=== PATIENT | female | born 1950 | race Caucasian/White ===

== ENCOUNTER 2018-08-18 17:24 | Outpatient (REF) | payer MEDICARE, OTHER, SELFPAY ==
--- NOTE | 2018-08-18 13:20 | PAPFT_PTH ---
PATIENT: Benita Hudson LOC: [facility] U#:[id number] AGE/SX: 67/F ROOM: RE08/18/[address]: MELANIE Green : 1950 BED: DIS: 08/18/2018 SPEC #: [id number] RECD: 08/18/18 17:28 STATUS: YOLA REQ #: [id number] KIMBERLY: 08/18/18 13:[address]: Vanessa Nails DEPT: [facility] Cytology RECD BY: Vannessa Anderson ENTERED: 08/18/18 17:28 SP TYPE: PAPFT OTHR DR: Dillon Mccallum MD Tissues: 1 - CX/ENDOCX FOR PAP SMEARS Procedures: PAP THIN PREP/[facility] Screening Comments: [id number]
== END 2018-08-18 17:44 ==
LOC: LBN 17:24
PROVIDERS: PCP Family Medicine; Visit Provider Nurse Practitioner Family
DX: Z12.4 Encounter for screening for malignant neoplasm of cervix (principal)
CPT/HCPCS: 88142

== ENCOUNTER 2018-08-23 00:16 | Outpatient (CLI) | payer MEDICARE, OTHER, SELFPAY ==
--- NOTE | 2018-08-23 15:47 | DI.MAMMO_ITS ---
SYMPTOMS/DIAGNOSIS: SCREENING, Z12.31 MAMMOGRAMS: Mammograms were interpreted according to the usual protocol including computer analysis with CAD system, tomosynthesis and C view imaging. Comparison is made with previous examinations. Today's study reveals an asymmetric nodular region in the superior portion of the left breast which is not appreciably changed when compared with previous examinations. There is no evidence of a right breast mass. There are no suspicious calcifications in either breast. SUMMARY: No significant interval change. No evidence of malignancy. Category 2, yearly screening mammography is recommended. Breast density, category B. MQSA ASSESSMENT OF FINDINGS: Negative with benign findings. Category 2. Patient will receive a letter notifying them of these results. BI-RADS category B. There are scattered areas of fibroglandular density.
== END 2018-08-23 00:36 ==
PROVIDERS: PCP Family Medicine; Visit Provider Nurse Practitioner Family
DX: Z12.31 Encounter for screening mammogram for malignant neoplasm of breast (principal)
CPT/HCPCS: 77063; 77067

== ENCOUNTER 2019-01-03 00:47 | Outpatient (CLI) | payer MEDICARE, OTHER, SELFPAY ==
--- NOTE | 2019-01-03 09:00 | DI.RAD_ITS ---
SYMPTOM/DIAGNOSIS: LT KNEE PAIN, M25.562 LEFT KNEE: Three views. No priors. There is mild periarticular spurring at the patellofemoral joint. The joint spaces are otherwise well maintained. The bones are intact and normally mineralized. There is an enthesophyte seen at the superior aspect of the patella. The soft tissues are unremarkable. IMPRESSION: Minimal degenerative changes of the left knee.
[2019-01-03 09:10] LABS: HCT 46.5 % (36.0-46.0); HGB 15.1 g/dL (12.0-15.5); Mean Corp. HGB Concentration 32.5 g/dL (32.0-36.0); Mean Corpuscular Hemoglobin 27.2 pg (27.0-33.0); Mean Corpuscular Volume 83.8 fL (80-95); Mean Platelet Volume 10.9 fL (8.0-11.0); Platelet Count 310 x1000/uL (130-400); RBC 5.55 m/cumm (4.00-5.20); RBC Distribution Width 13.7 % (11.7-14.6); White Blood Cell Count 6.16 k/cumm (4.4-10.8)
[2019-01-03 09:46] LABS: Anion Gap 8.4 mmol/L (3-11); BUN 17 mg/dL (7-18); CO2 28.6 mmol/L (21.0-32.0); CREATININE 0.92 mg/dL (0.55-1.02); Calcium 9.2 mg/dL (8.5-10.1); Chloride 102 mmol/L (98-107); Glucose 92 mg/dL (70-100); Potassium 4.5 mmol/L (3.5-5.1); Sodium 139 mmol/L (136-145)
== END 2019-01-03 01:07 ==
PROVIDERS: PCP Family Medicine; Visit Provider Family Medicine
DX: M25.562 Pain in left knee (principal); I10 Essential (primary) hypertension; M17.12 Unilateral primary osteoarthritis, left knee
CPT/HCPCS: 36415; 73562; 80048; 85027

== ENCOUNTER 2019-08-17 15:46 | Outpatient (CLI) | payer MEDICARE, OTHER, SELFPAY ==
[2019-08-17 17:10] LABS: TSH (W/Ref FT4) 0.97 uIU/mL (0.36-3.74)
== END 2019-08-17 16:06 ==
PROVIDERS: PCP Family Medicine; Visit Provider Nurse Practitioner Family
DX: I10 Essential (primary) hypertension (principal); N95.0 Postmenopausal bleeding
CPT/HCPCS: 36415; 84443

== ENCOUNTER 2019-08-17 16:08 | Outpatient (REF) | payer MEDICARE, OTHER, SELFPAY ==
--- NOTE | 2019-08-17 16:00 | ENDOMET_PTH ---
PATIENT: Benita Hudson LOC: N U#:[id number] AGE/SX: 68/F ROOM: RE08/17/[address]: Ange Lam : 1950 BED: DIS: 08/17/2019 SPEC #: [id number] RECD: 08/17/19 18:27 STATUS: YOLA REQ #: [id number] KIMBERLY: 08/17/19 16:[address]: Ange Lam DEPT: Surgical Specimen RECD BY: Vannessa Anderson ENTERED: 08/17/19 18:27 SP TYPE: Endomet OTHR DR: Dillon Mccallum MD Tissues: 1 - ENDOMETRIUM BX/TEVINETTE Procedures: GROSS AND MICRO LEVEL 4 Comments: [id number]
== END 2019-08-17 16:28 ==
LOC: LBN 16:08
PROVIDERS: PCP Family Medicine; Visit Provider Obstetrics & Gynecology Gynecology
DX: N84.0 Polyp of corpus uteri (principal); N95.0 Postmenopausal bleeding; N85.8 Other specified noninflammatory disorders of uterus; N83.8 Other noninflammatory disorders of ovary, fallopian tube and broad ligament
CPT/HCPCS: 88305

== ENCOUNTER 2019-08-21 03:27 | Outpatient (CLI) | payer MEDICARE, OTHER, SELFPAY ==
--- NOTE | 2019-08-21 13:54 | DI.US_ITS ---
EXAM: US PELVIS AND TRANSVAGINAL CLINICAL HISTORY: PMB, POSTMENOPAUSAL BLEEDING, N95.0 TECHNIQUE: Ultrasound performed using standard protocol. COMPARISON: No exams were available for comparison FINDINGS: The uterus measures 7.5 cm x 3.7 cm x 4.2 cm. Endometrial stripe is diffusely thickened and vascular . It measures up to 1.5 cm. Right ovary was not seen transabdominally or transvaginally. Right adnexal mass is seen. The left ovary measures 1.5 cm x 0.8 cm x 0.8 cm. The ovary is unremarkable. No hydronephrosis or free pelvic fluid is seen. IMPRESSION: Thickened and heterogeneous endometrial stripe in this postmenopausal patient. It measures up to 1.5 cm. Neoplasm cannot be excluded. Gynecologic consult is recommended.
== END 2019-08-21 03:47 ==
PROVIDERS: PCP Family Medicine; Visit Provider Nurse Practitioner Family
DX: N95.0 Postmenopausal bleeding (principal); R93.89 Abnormal findings on diagnostic imaging of other specified body structures
CPT/HCPCS: 76830; 76856

== ENCOUNTER 2019-08-27 08:53 | Outpatient (CLI) | payer MEDICARE, OTHER, SELFPAY ==
[2019-08-27 10:17] LABS: HGB 14.1 g/dL (12.0-15.5); Mean Corpuscular Volume 84.1 fL (80-95); Mean Platelet Volume 11.3 fL (8.0-11.0); Platelet Count 348 x1000/uL (130-400); RBC 5.23 m/cumm (4.00-5.20); RBC Distribution Width 13.7 % (11.7-14.6); White Blood Cell Count 5.61 k/cumm (4.4-10.8)
== END 2019-08-27 09:13 ==
PROVIDERS: PCP Family Medicine; Visit Provider Obstetrics & Gynecology Gynecology
DX: N95.0 Postmenopausal bleeding (principal); L71.9 Rosacea, unspecified; Z01.84 Encounter for antibody response examination
CPT/HCPCS: 36415; 85027; 86850; 86900; 86901

== ENCOUNTER 2019-08-30 06:10 | Day surgery (SDC) | payer MEDICARE, OTHER, SELFPAY ==
[2019-08-30 06:32] VITALS: BP 145/79; PULSE 90; RESP 18; TEMP 36.9; O2SAT 95
[2019-08-30] MEDS: Lactated Ringers 1,000 ML 125 ML IV (06:55)
[2019-08-30] MEDS: Bupivacaine 0.25% Pres-Free 30 ML VIAL (07:52)
--- NOTE | 2019-08-30 08:02 | ENDOMET_PTH ---
PATIENT: Benita Hudson LOC: [facility] U#:[id number] AGE/SX: 68/F ROOM: RE08/30/[address]: Ange Lam : 1950 BED: DIS: 08/30/2019 SPEC #: [id number] RECD: 08/30/19 12:30 STATUS: YOLA REQ #: [id number] KIMBERLY: 08/30/19 08:[address]: Ange Lam DEPT: Surgical Specimen RECD BY: Vannessa Anderson ENTERED: 08/30/19 12:30 SP TYPE: Endomet OTHR DR: Dillon Mccallum MD Tissues: 1 - ENDOMETRIUM BX/TEVINETTE Procedures: GROSS AND MICRO LEVEL 4 Comments: [id number]
[2019-08-30 08:48] VITALS: BP 132/68; PULSE 64; RESP 16; TEMP 36.4; O2SAT 95
--- NOTE | 2019-08-30 09:18 | W.PM.DSUDISC ---
Discharge Plan Discharge Details Reason For Visit: PMB Attending Provider: Ange Lam Primary Care Provider: Dillon Mccallum Home Meds and New Rx's Prescriptions: No Action hydrochlorothiazide 12.5 mg tablet 12.5 mg PO DAILY Qty: 90 RF: 4 ibuprofen [Advil] 200 mg Tablet 200 mg PO Q6H PRNRF: 0 diphenhydramine-acetaminophen [Tylenol PM Extra Strength] 25-500 mg Tablet RF: 0 Discharge Instructions Stand Alone Forms: [facility] Post Gynecology Surgery, Tejal Prasad (DSU) DS: Diagnosis Discharge Diagnosis (1) Postmenopausal bleeding: Status: Acute
--- NOTE | 2019-08-30 20:20 | W.PM.OP ---
Date of service: 08/30/19 Time of Service: 20:20 Operative Note Operative Note DATE OF PROCEDURE: 08/30/19 PRE-OP DIAGNOSIS: Postmenopausal bleeding POST-OP DIAGNOSIS: other (Tenia corporis of medial thighs.) endometrial polyps PROCEDURE: diagnostic hysteroscopy, dilation of the cervix and curretage of uterine cavity SURGEON: Ange Lam ANESTHESIA: MAC ESTIMATED BLOOD LOSS: 5 PATHOLOGY: other (Uterine curettings) COMPLICATIONS: None Patient was transported to: same day Patient's condition: stable Indications: 68-year-old postmenopausal female with an episode of postmenopausal bleeding and finding of polypoid structures on recent endometrial biopsy. Findings: Large sessile endometrial polyp arising from the floor of the uterine cavity. Thickened endometrial lining. Procedure Description: Patient was taken to the operating room where she is placed in the dorsal supine position and monitored anesthesia care was administered without difficulty. She was then placed in the dorsal lithotomy position in yellowfin stirrups prepped and draped in the usual sterile fashion. SCDs were in place. Surgical timeout was performed. No antibiotics were required. A bivalve speculum was placed in the vagina. A paracervical block was performed with quarter percent Marcaine without epinephrine and the anterior lip of the cervix was grasped with a single-tooth tenaculum and the uterus sounded to 8 cm. The cervix was then sequentially dilated to a maximum dilation of 17 Luther. A diagnostic hysteroscope was then introduced into the uterine cavity with normal saline as the distention medium. All 4 quadrants of the uterine cavity were carefully inspected with the above-noted findings. A 7 mm curved suction cannula was then introduced into the uterine cavity and attached to 70 mmHg pressure in all 4 quadrants of the uterine cavity were suction curetted. A banjo curette was then introduced into the uterine cavity and all 4 quadrants of the uterine cavity were curetted until gritty texture was obtained. A 1 x 3 cm polypoid structure was removed from the uterine cavity with the banjo curette. It was sent along with the other endometrial curettings. A inspection of the uterine cavity was performed with the hysteroscope. There was a marked decrease in the polypoid structures within the cavity. Hysteroscope was removed a final suction curettage was performed with minimal tissue returned. The tenaculum was removed from the cervix the tenaculum site was hemostatic. All instruments were removed from the vagina. All sponge lap and needle counts are correct x2
== END 2019-08-30 09:55 | disposition home or self-care (01) ==
LOC: SUR 06:10
PROVIDERS: PCP Family Medicine; Visit Provider Obstetrics & Gynecology Gynecology
PROC: 0UDB8ZZ Extraction of Endometrium, Via Natural or Artificial Opening Endoscopic (ICD-10-PCS; CPT 58558; 2019-08-30 07:30)
DX: N95.0 Postmenopausal bleeding (principal); B35.4 Tinea corporis; N84.0 Polyp of corpus uteri
CPT/HCPCS: 58558; 88305; J2001; J2250; J3010

== ENCOUNTER 2020-07-25 02:04 | Outpatient (CLI) | payer MEDICARE, OTHER, SELFPAY ==
--- NOTE | 2020-07-25 08:05 | DI.MAMMO_ITS ---
EXAM: MAMMO SCREENING CLINICAL HISTORY: screening, Z12.39 TECHNIQUE: Mammograms were interpreted according to the usual protocol including computer analysis w Leatt CAD system, tomosynthesis and C-view imaging. COMPARISON: FINDINGS: The breasts are moderate density with fairly symmetrical distribution of fibroglandular tissue. No d ominant mass or clumped microcalcification is identified in either breast. The current examination i s compared with previous examinations including July 2018 and there has been no gross interval ch juan manuel in appearance in comparison with the prior studies. IMPRESSION: No specific evidence of malignancy at this time. Routine screening examinations are suggested at yea rly intervals due to the family history of breast carcinoma. BI-RADS Category 1 - Negative Breast Density - Category B - Scattered areas of fibroglandular density
== END 2020-07-25 02:24 ==
PROVIDERS: PCP Nurse Practitioner; Visit Provider Nurse Practitioner Family
DX: Z12.31 Encounter for screening mammogram for malignant neoplasm of breast (principal); Z80.3 Family history of malignant neoplasm of breast
CPT/HCPCS: 77063; 77067

== ENCOUNTER 2021-03-24 02:54 | Outpatient (CLI) | payer MEDICARE, OTHER, SELFPAY ==
--- NOTE | 2021-03-24 08:30 | DI.CTLCSR_ITS ---
Exam(s) CT CHEST LUNG CANCER SCREEN EXAM: CT CHEST LUNG CANCER SCREEN CLINICAL HISTORY: Screening for lung cancer,former smoker, z87.891 TECHNIQUE: Imaging Protocol: Axial computed tomography images with coronal and sagittal reformatted images were created and reviewed COMPARISON: No exams were available for comparison FINDINGS: Tracheobronchial tree: Patent where visualized. Pulmonary parenchyma: No consolidation or dominant measurable mass. No architectural distortion. Ther e is scarring in the right lower lobe medially. Lung Nodules: There is a 4 mm nodule in the right middle lobe. There is a triangular perifissural nod ule associated with the right major fissure. There is a 2 mm nodule in the right lower lobe adjacent to the right major fissure. There is a 2 mm nodule in the left lower lobe. Mediastinum and Elva: No dominant adenopathy or fluid collection. Pleura: No effusion or pneumothorax. Heart: The heart is not dilated. Mild coronary artery calcification. No pericardial effusion. Aorta: Thoracic aorta non-dilated.Mild atherosclerosis. Upper abdomen: Status post cholecystectomy. Soft Tissues: Unremarkable. Bones: Within normal limits. IMPRESSION: Pulmonary nodules as described above. Lung RADS Cat 2 - Benign Appearance / Behavior: Nodules with a very low likelihood of becoming a clin ically active cancer due to size or lack of growth Lung-RADS 1.0 CATEGORIES: Category 0 - Prior chest CT exam(s) being located for comparison. Category 1 - Annual screening in 12 months. No nodules or definitely benign nodules. Category 2 - Annual screening in 12 months. Benign appearance. Nodules with low likelihood of becomin g active cancer. Category 3 - 6-month follow-up. Probably benign. Short-term follow-up suggested. Nodules with low lik elihood of becoming active cancer. Category 4A - 3-month follow-up and CT/PET if >8 mm in size. Suspicious finding. Findings which requi re additional testing. Category 4B - Findings which require additional testing and tissue sampling. Suspicious finding. Modifier S- Potentially clinically significant finding. (Non lung cancer) RADIATION DOSE DELIVERED: 84.98mGy.cm Total DLP 2.21mGy CTDIvol 84.98mGy.cm Total DLP 2.21mGy CTDIvol DATA REPOSITORY: All CT scans at this facility are submitted to the National Radiology Data Registry (NRDR) Dose Index Registry (DIR) with the [employer] (ACR). RADIATION OPTIMIZATION: All CT scans at this facility use at least one of these dose optimization te chniques: automated exposure control; mA and/or kV adjustment per patient size (includes targeted exa ms where dose is matched to clinical indication); or iterative reconstruction.
== END 2021-03-24 03:14 ==
PROVIDERS: PCP Nurse Practitioner; Visit Provider Nurse Practitioner
DX: Z12.2 Encounter for screening for malignant neoplasm of respiratory organs (principal); R91.1 Solitary pulmonary nodule; Z87.891 Personal history of nicotine dependence
CPT/HCPCS: 71271

== ENCOUNTER 2021-04-16 02:56 | Outpatient (CLI) | payer MEDICARE, SELFPAY ==
[2021-04-16 10:08] LABS: Anion Gap 10.7 mmol/L (3-11); BUN 20 mg/dL (7-18); CO2 26.3 mmol/L (21.0-32.0); CREATININE 0.9 mg/dL (0.55-1.02); Calcium 9.3 mg/dL (8.5-10.1); Calculated LDL 157 mg/dL (<100); Chloride 106 mmol/L (98-107); Cholesterol 245 mg/dL (<200); Glucose 98 mg/dL (74-106); HDL Cholesterol 60 mg/dL (40-60); Potassium 4.5 mmol/L (3.5-5.1); Sodium 143 mmol/L (136-145); Triglyceride 143 mg/dL (<150)
== END 2021-04-16 02:57 | disposition home or self-care (01) ==
LOC: LBO 02:56
PROVIDERS: PCP Nurse Practitioner; Visit Provider Nurse Practitioner
DX: I10 Essential (primary) hypertension (principal)
CPT/HCPCS: 36415; 80048; 80061

== ENCOUNTER 2021-05-07 02:12 | Outpatient (CLI) | payer MEDICARE, SELFPAY ==
--- NOTE | 2021-05-07 07:00 | DI.DEXA_ITS ---
Exam(s) XR DEXA BONE DENSITY W/WO PAOLO EXAM: XR DEXA BONE DENSITY W/WO PAOLO CLINICAL HISTORY: screening for osteoporosis in postmenopausal woman,z78.0 TECHNIQUE: Routine DEXA evaluation of the lumbar spine, hip, or forearm. COMPARISON: No exams were available for comparison FINDINGS: Performed on a Hologic unit. Lateral image: There is slight loss of height of the superior endplate of L1 noted Lumbar Spine total T-score: 0.3 Hip total T-score:-0.3 Independent reading at the femoral neck yields a T-score of 0.3 Forearm total T-score: -1.4 IMPRESSION: Bone mineral density measures in the normal range for the lumbar spine and hip but in the osteopenia range for the wrist-forearm. I note that there is mild loss of height of the superior endplate of L1 .. Fracture risk is moderate. Note: Any spine fracture indicates 5x risk for subsequent spine fracture and 2x risk for subsequent h ip fracture. World Health Organization criteria for BMD interpretation classify patients: Normal...... T- Score at or above -1.0 Osteopenic... T- Score between -1.0 and -2.5 Osteoporosis... T-Score at or below -2.5
== END 2021-05-07 02:32 ==
PROVIDERS: PCP Nurse Practitioner; Visit Provider Nurse Practitioner
DX: Z78.0 Asymptomatic menopausal state (principal); M85.839 Other specified disorders of bone density and structure, unspecified forearm; Z13.820 Encounter for screening for osteoporosis
CPT/HCPCS: 77080

== ENCOUNTER 2022-05-07 09:34 | Inpatient (IN) | payer MEDICARE, OTHER, SELFPAY ==
[2022-05-07] VITALS (22 sets, daily range): BP systolic 120–158; BP diastolic 55–99; PULSE 65–85; RESP 11–22; TEMP 36.6–37; O2SAT 97–100
--- NOTE | 2022-05-07 09:30 | RT.EKG_ITS ---
APPROVED REPORT Exam: Resting ECG Reason for Exam: WEAKNESS Patient Location: E HR:78 bpm ECG Measurements Heart Rate 78 AXIS [place] 152 P 67 QRSd 91 QRS 34 QT 386 T 24 QTc 442 Conclusion Sinus rhythm...normal P axis, V-rate 60- 99
--- NOTE | 2022-05-07 09:45 | DI.CT_ITS ---
Exam(s) CT HEAD - STROKE PROTOCOL EXAM: CT HEAD - STROKE PROTOCOL CLINICAL HISTORY: L face droop, L hand weak. TECHNIQUE: Imaging Protocol: Axial computed tomography images with coronal and sagittal reformatted images were created and reviewed COMPARISON: No exams were available for comparison FINDINGS: Ventricles and Extra axial spaces: Normal in size and morphology for the patient's age. Hemorrhage: None. Cerebral parenchyma: Normal. Midline shift: None. Brainstem/Cerebellum: Normal. Calvarium: Normal. Visualized Paranasal sinuses/Mastoids: Clear. Soft Tissues: Unremarkable. IMPRESSION: 1. No acute intracranial process. 2. Results of this exam have been verbally communicated with provider. RADIATION DOSE DELIVERED: 681.92mGy.cm Total DLP DATA REPOSITORY: All CT scans at this facility are submitted to the National Radiology Data Registry (NRDR) Dose Index Registry (DIR) with the [employer] (ACR). RADIATION OPTIMIZATION: All CT scans at this facility use at least one of these dose optimization te chniques: automated exposure control; mA and/or kV adjustment per patient size (includes targeted exa ms where dose is matched to clinical indication); or iterative reconstruction.
--- NOTE | 2022-05-07 09:52 | W.ED.GENAD ---
Discharge Plan Disposition Patient Disposition: [facility] INPATIENT Condition: Improving Discharge Details Clinical Impression: Acute CVA (cerebrovascular accident) Admit Date/Time: 05/07/22 12:34 Admit Provider: Flaquita Hernandez Attending Provider: Flaquita Hernandez Primary Care Provider: Deidre Helton ED Provider: William Freeman Discharge Data Discharge Date/Time-TO BE ENTERED AT DEPARTURE: 05/07/22 13:36 Medical Decision Making 71-year-old female with a history of hypertension presents from home with 30 minutes of subtle left facial droop and left hand weakness and clumsiness. She does not have difficulty with speech, swallowing, or with walking or weakness of the lower extremity. On neurologic exam she has a left facial droop, palatal elevation and tongue extrusion are unremarkable. Motor strength the upper extremities 5 out of 5, [id number] is intact without evidence of dysmetria. She does note weakness inability to close the hand and in demonstration of the motor function of the radial median ulnar nerves of the hand. There is no numbness or paresthesias. Just prior to presentation the patient took 2 Excedrin migraines containing 250 mg each of aspirin and acetaminophen for total of 500 mg of aspirin. On arrival she was placed in a monitored bed, IV access was established. Patient referred for stat noncontrast CT scan which is unremarkable. At approximately 10:40 AM the patient's left facial droop is improved, her hand weakness is also improving. Laboratories are reassuring including CBC, chemistries, and negative troponin. MRI reveals a 4 mm area of restricted diffusion in the right insula. Consistent with an acute infarct. Also present is evidence of small vessel ischemic disease. Patient does continue to improve but her clumsiness and mild weakness of the left hand remains present. We will discuss admission with hospitalist team. HPI General Mode of arrival: ambulatory. Date/Time Provider Initiated Documentation: 05/07/22 09:35. Limitations to Documentation: no limitations. Information obtained by: patient. History of Present Illness 71 year old F presents to the emergency department with the chief complaint of Left hand weakness and left facial droop 30 minutes prior, described as mild, and is localized to the mouth, left and upper extremity. Patient reports no radiation. Patient started experiencing this minute(s) and it has been constant. No relieving factors improve symptom(s), No exacerbating factors reported . Patient notes denies chest pain, headaches, shortness of breath and syncope. Patient did receive the following treatments prior to arrival, other (Took 2 Excedrin Migraine) Related Data Home Medications Medication Instructions Recorded Confirmed ibuprofen 200 mg tablet (Advil) 200 mg PO Q6H PRN 08/30/19 05/07/22 diphenhydramine 25 1 tab PO QHS 02/26/20 05/07/22 mg-acetaminophen 500 mg tablet (Tylenol PM Extra Strength) hydrochlorothiazide 12.5 mg tablet 12.5 mg PO DAILY #90 tab-caps 04/30/22 05/07/22 Previous Rx's Medication Instructions Recorded hydrochlorothiazide 12.5 mg tablet 12.5 mg PO DAILY #90 tab-caps 04/30/22 Allergies Allergy/AdvReac Type Severity Reaction Status Date / Time Sulfa (Sulfonamide Allergy hives Verified 05/07/22 09:43 Antibiotics) General Stated Complaint: CVA/TIA KLEVER: 2 Review of Systems Narrative: Denies recent illness PFSH All Active Problems (Updated 05/07/22 @ 12:32 by William Freeman MD) Acute CVA (cerebrovascular accident) (Acute) History of smoking 30 or more pack years (Acute) lung CT screening yearly Essential hypertension (Chronic 12/22/17) Rosacea (Chronic 11/26/14) Tinnitus of both ears (Chronic 10/21/16) Medical History Arthritis of right knee (04/12/16) Bilateral hearing loss (10/21/16) Chronic otitis externa of both ears (10/21/16) Left knee pain Postmenopausal bleeding 06/2019. EMBX-08/17/2019. B9 endometrial polyps. Inactive endometrium. 08/30/19 Hysteroscopic polypectomy and D &C. Tear of medial meniscus of right knee (04/12/16) Surgical History section Cholecystectomy Dilation and curettage 2 years after stopping menses had an episode of postmenopausal bleeding. Benign D&C results. Family History Mother , 92 Breast cancer Father , 80 Diabetes CAD (coronary artery disease) Lung cancer Liver cancer Sister No problems noted. Maternal Grandmother , 92 Stroke Son No problems noted. Son No problems noted. Daughter No problems noted. Maternal Grandfather Heart disease Paternal Grandfather Heart disease Social History Smoking/Tobacco Use Status: Former Tobacco Use Quit Date: 08/29/10 Tobacco: How many years used: 40 Second Hand Exposure: No Smoking risk assessment performed?: Yes Alcohol Intake: current Alcohol Intake frequency: a few times a week Alcohol type: hard liquor Drug use: Never Substance use type: does not use Details: alcohol: t-1, one drink Caregiver/Support person: No Household members: spouse and other Details: David. 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 Pets and animals: No Sexually active: Yes Do you think of yourself as: straight/heterosexual Current gender identity: female What is your relationship status?: How often do you talk on the phone with friends or family?: three or more times per week How often do you get together with friends or relatives?: three or more times per week How often do you attend yazidi or mandaen services?: 1-3 times per year Do you belong to any clubs or organized social groups?: no Panel score (0-1 are the most socially isolated patients): 2 What type of physical activity do you participate in: walking Duration: 30-45 minutes/day Frequency: 3-4 times per week Kaylin/Taoist: Restorationism Special kaylin needs: No Seatbelt use: always Helmet use: No Drive intox or ride w/intox auto crane driver: No Do you feel safe at home: Yes Do you feel safe in your relationship?: Yes Exam Narrative Exam Narrative: GEN: awake, alert, oriented 3. Pleasant, well groomed, interactive. HEAD: Normocephalic, atraumatic ENT: Mucous membranes moist, oropharynx unremarkable, subtle left facial droop EYES: PERRL, EOMI NECK: Full ROM, no ADRIANA, no menigismus CHEST/RESP: Nontender, clear to auscultation bilateral, no wheeze/rhonchi/rales CARDIOVASCULAR: RRR, no murmur, rub thad. 2+ Rad pulse bilateral ABDOMEN: Soft, nontender, no mass. +Bowel sounds EXT: Full ROM, no edema, no rash Neuro: Subtle left facial droop. Uiafyl-ot-tmek intact bilaterally. Left hand surfboard maker weakness, 5 out of 5 strength in the bilateral upper extremity and lower extremity. Cranial nerves otherwise intact., conversant, interactive. Psych: Speech fluent, thoughts congruent, affect normal Course Vital Signs Vital signs: Vital Signs Pulse 85 05/07/22 09:37 Respiratory Rate 20 05/07/22 09:37 Blood Pressure 128/99 H 05/07/22 09:37 Pulse Oximetry 99 05/07/22 09:37 Temperature Source Temporal Artery Scan 05/07/22 09:37 Pulse 85 05/07/22 09:37 Respiratory Rate 20 05/07/22 09:37 Respiratory Effort 05/07/22 09:43 Blood Pressure 128/99 H 05/07/22 09:37 Blood Pressure Position Supine 05/07/22 09:37 Pulse Oximetry 99 05/07/22 09:37 Oxygen Delivery Method Room Air 05/07/22 09:37 Oxygen Flow Rate 0 05/07/22 09:37 Pain Level 0 05/07/22 09:37
--- NOTE | 2022-05-07 10:00 | DI.RAD_ITS ---
Exam(s) XR PORTABLE CHEST AP EXAM: XR PORTABLE CHEST AP CLINICAL HISTORY: L facial droop, L hand weakness TECHNIQUE: 2D digital imaging was performed of the chest. One image was obtained. An AP view was ob tained. COMPARISON: No exams were available for comparison FINDINGS: MEDIASTINUM: Normal. HEART: Normal. PULMONARY VASCULATURE: Normal. LUNGS: Clear. PLEURAL SPACE: No pleural effusion or pneumothorax. BONE:Within normal limits for the patient's age. OTHER FINDINGS:Normal. IMPRESSION: No acute pulmonary findings. DATA REPOSITORY: RADIATION DOSE DELIVERED:
[2022-05-07 10:16] LABS: Abs Immature Grans 0.02 10^3/uL (0.0-0.06); Absolute Basophil Count 0.06 10^3/uL (0.0-0.2); Absolute Eosinophil Count 0.15 10^3/uL (0.0-0.7); Absolute Lymphocyte Count 2.65 10^3/uL (1.2-3.4); Absolute Monocyte Count 0.54 10^3/uL (0.1-0.8); Absolute Neutrophil Count 2.46 10^3/uL (1.2-6.7); Eosinophils % 2.6; HCT 46.8 % (36.0-46.0); HGB 14.8 g/dL (11.2-15.7); Immature Grans % 0.3; Lymphocytes % 45.1; MCH 26.7 pg (27.0-33.0); MCHC 31.6 % (32.0-36.0); MCV 85 fL (80-95); MPV 10.8 fL (8.0-11.0); Monocytes % 9.2; Neutrophils % 41.8; Platelet Count 325 10^3/uL (130-400); RBC 5.54 10^6/uL (3.93-5.22); RDW-SD 40.2 fL; WBC 5.88 10^3/uL (4.4-10.8)
--- NOTE | 2022-05-07 10:30 | DI.MRI_ITS ---
Exam(s) MR BRAIN WO EXAM: MR BRAIN WO CLINICAL HISTORY: L hand clumsiness, L facial droop TECHNIQUE: Multiplanar multisequence MRI of the brain was performed. COMPARISON: No exams were available for comparison FINDINGS: VENTRICLES AND EXTRA AXIAL SPACES: Normal in size and morphology for the patient's age. MIDLINE SHIFT: None. CEREBRAL PARENCHYMA: There is a 4 mm area of restricted diffusion in the right insula. This is consi stent with an acute infarct. There are areas of hyperintense signal seen in the white matter on the FLAIR and T2 weighted images most consistent with small vessel ischemic disease. No space-occupying lesion identified. HEMORRHAGE: None. BRAINSTEM/CEREBELLUM: Normal. CALVARIUM: Normal. VISUALIZED PARANASAL SINUSES/MASTOIDS:Clear. [place]: Normal flow void. The right posterior cerebral artery appears to arise from the rig ht posterior communicating artery. This is a normal variant. PIT[place]ARY GLAND: Unremarkable. OTHER FINDINGS: None. IMPRESSION: 1. 4 mm area of restricted diffusion in the right insula consistent with an acute infarct. 2. Age-related cerebral atrophy and small vessel ischemic disease. 3. Results of this exam have been verbally communicated with provider. DATA REPOSITORY:
[2022-05-07] MEDS: Normal Saline 500 ML IV (10:50)
[2022-05-07 11:00] LABS: ALT 25 U/L (14-59); AST 14 U/L (15-37); Albumin 3.8 g/dL (3.4-5.0); Alkaline Phosphatase 81 U/L (46-116); Anion Gap 5.9 mmol/L (3-11); BUN 17 mg/dL (7-18); Bilirubin, Total 0.5 mg/dL (0.2-1.0); CO2 32.1 mmol/L (21.0-32.0); CREATININE 0.9 mg/dL (0.55-1.02); Calcium 9.4 mg/dL (8.5-10.1); Chloride 100 mmol/L (98-107); Estimated GFR 68.35 (mL/min/1.73m2); Glucose 91 mg/dL (74-106); Potassium 3.6 mmol/L (3.5-5.1); Sodium 138 mmol/L (136-145); Troponin I < 50 ng/L (<or=60)
[2022-05-07 12:33] LABS: Source Nasal/Nares
--- NOTE | 2022-05-07 12:46 | DI.CT_ITS ---
Exam(s) CT BRAIN NECK CTA EXAM: CT BRAIN NECK CTA CLINICAL HISTORY: 4mm R insular stroke. CTA please. TECHNIQUE: Imaging Protocol: Axial CT angiography was performed with multi-slice acquisition and mu lti-planar and/or 3D reconstructions. CONTRAST MATERIAL: Intravenous: Omnipaque 350 Contrast volume:100 mL COMPARISON: CT CT HEAD - STROKE PROTOCOL from 05/07/2022 MR MR BRAIN WO from 05/07/2022 FINDINGS: CTA Brain W: Internal Carotid Arteries: Calcification is seen in both internal carotid arteries but no significan t stenosis is seen. No occlusion is present. Middle Cerebral Arteries: Right: No aneurysm, occlusion or significant stenosis. Left: No aneurysm, occlusion or significant stenosis. Anterior Cerebral Arteries: Right: No aneurysm, occlusion or significant stenosis. Left: No aneurysm, occlusion or significant stenosis. Posterior cerebral Arteries: Right: No aneurysm, occlusion or significant stenosis. The right TIME ANALYSIS CLERK arises from the right PCOM. Th is is a normal variant. Left: No aneurysm, occlusion or significant stenosis. Vertebral Arteries: Right: No aneurysm, occlusion or significant stenosis. Left: No aneurysm, occlusion or significant stenosis. There is a dominant left vertebral artery. Basilar Artery: No aneurysm, occlusion or significant stenosis. CTA Neck W: Common Carotid: Right: No aneurysm, occlusion or significant stenosis. Mild atherosclerosis in the distal CCA. Left: No aneurysm, occlusion or significant stenosis. Mild atherosclerosis in the distal CCA. External Carotid: Right: No aneurysm, occlusion or significant stenosis. Left: No aneurysm, occlusion or significant stenosis. Internal Carotid: Right: No aneurysm, occlusion or significant stenosis. Mild atherosclerosis at the origin of the ICA . Left: No aneurysm, occlusion or significant stenosis. Mild atherosclerosis at the origin of the ICA. Vertebral Artery: Right: No aneurysm, occlusion or significant stenosis. Left: No aneurysm, occlusion or significant stenosis. Lung Apices: Normal. Bones: Within normal limits for the patient's age. Soft Tissues: Normal. IMPRESSION: 1. No evidence of a large vessel occlusion or significant stenosis on the CTA of the brain. 2. No evidence of occlusion or significant stenosis on the CT angiography of the neck. 3. Results of this exam have been verbally communicated with provider. RADIATION DOSE DELIVERED: 362.89mGy.cm Total DLP 362.89mGy.cm Total DLP DATA REPOSITORY: All CT scans at this facility are submitted to the National Radiology Data Registry (NRDR) Dose Index Registry (DIR) with the [employer] (ACR). RADIATION OPTIMIZATION: All CT scans at this facility use at least one of these dose optimization te chniques: automated exposure control; mA and/or kV adjustment per patient size (includes targeted exa ms where dose is matched to clinical indication); or iterative reconstruction.
[2022-05-07 13:05] LABS: COVID-19 PCR Negative (Negative)
[2022-05-07 13:17] LABS: Troponin I < 50 ng/L (<or=60)
[2022-05-07] MEDS: Omnipaque 350 MG/ML 100 ML BTL IJ (13:29)
--- NOTE | 2022-05-07 14:58 | IN_ITS ---
Date of service: 05/07/22 Time of Service: 02:45 PT Notes Visit Reasons: Acute CVA Inpatient Physical Therapy Evaluation Date: 05/07/22 Referring Doctor: Flaquita Hernandez MD PT Orders: PT CONSULT: Limited ability Precautions: Standard Patient Profile/Admitting Diagnosis: 71-year-old female status post acute infract, presenting this morning to ER with left hand weakness and clumsiness, history of hypertension. 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 Arthritis of right knee (04/12/16) Bilateral hearing loss (10/21/16) Chronic otitis externa of both ears (10/21/16) Left knee pain Postmenopausal bleeding 06/2019. EMBX-08/17/2019. B9 endometrial polyps. Inactive endometrium. 08/30/19 Hysteroscopic polypectomy and D &C.Tear of medial meniscus of right knee (04/12/16) Surgical History? section Cholecystectomy Dilation and curettage 2 years after stopping menses had an episode of postmenopausal bleeding.? Benign D&C results. Social History/Home Situation: Lives in a private two-story home with her , retired. Lives an active lifestyle. Independently functioning Current Functional Limitations: None Equipment Owned/DME: None Subjective: Denies pain, reporting improvement with coordination and function of left hand since admission. This morning she was unable to open a Advil bottle, which raise concern to her. Objective: General Observation: Playing cards with her , manipulating cards easily. She is in no distress. Sitting in hospital chair, telemetry in place Mental Status: A&O x3 Pain: 0/10 ROM: Right Upper Extremity: WNL Left Upper Extremity: WNL Right Lower Extremity: WNL Left Lower Extremity: WNL Strength: Right Upper Extremity: 5/5 Left Upper Extremity: 5/5 Right Lower Extremity: 5/5 Left Lower Extremity: 5/5 Sensation: WNL Bed Mobility/Transfers: Independent Gait: WNL, no AD Balance: Childers balance 55/56, only impairment of some unsteadiness with single-le g stance Special Tests: Mobility Limitations Standardized Measure [facility] AM-PAC 6 clicks Basic Mobility Inpatient Short Form: 0% disability Raw Score: Standardized Score: [] CMS Score: [] Informed Consent/Education: Patient instructed in purpose of PT consult and plan of care. Assessment: Patient is a 71year old female referred to physical therapy services with the diagnosis of acute infarct. Patient presents with no current remarkable impairments or functional limitations. Her left hand clumsiness and weakness is resolving, and I have no detectable impairment with PT testing. She is not appropriate for PT care, due to her lack of impairments or functional limitations, she is safe and cleared to ambulate within patient room and halls independently. Patient is assessed as a Low 63055 complexity based on the following: History: See comorbidities Examination: No impairments or functional limitations Presentation: Stable Decision Making: Easy Plan of Care/Treatment Plan: Discharged DISCHARGE RECOMMENDATIONS: Home with no services TREATMENT CODE/TIME: 15 min direct and total, 57226
--- NOTE | 2022-05-07 15:40 | W.PM.HP.N ---
Date of service: 05/07/22 Time of Service: 16:05 Assessment and Plan Assessment and plan (1) Acute CVA (cerebrovascular accident): Status: Acute Assessment and plan: Awaiting [facility] neurology call back for further recommendations for treatment. Anticipate will need MARILEE. PT, OT, speech consulted. Hold antihypertensives. Monitor on tele. Neurochecks. Will need outpatient echo as one is not currently available at our facility. (2) Essential hypertension: Status: Chronic Assessment and plan: Hold home HCTZ in light of permissive hypertension. (3) Migraines: Assessment and plan: Monitor for recurrence. Excedrin migraine is effective. (4) Obesity (BMI 30-39.9): Assessment and plan: Check TSH, A1C. (5) DVT prophylaxis: Status: Acute Assessment and plan: SC enoxaparin (6) Discharge planning issues: Status: Acute Assessment and plan: Full code as discussed with the patient and witnessed by the . Anticipate discharge home tomorrow vs Tuesday. Will need extended cardiac monitoring and an outpatient echocardiogram. History of Present Illness History of Present Illness Chief Complaint: LUE clumsiness, numbness, weakness, paresthesias going up the arm to L face Narrative: Ms Hudson is a 71 year old female with PMHx of HTN, past tobacco abuse, migraines, obesity with BMI of 34.8 kg/m2, who is right-handed presented to [facility] ED today after noticing a L hand numbness, tingling, weakness going up her LUE to her L face. She associated some of the symptoms with a possible migraine, as those usually present with LUE numbness, but not weakness (and the symptoms never spread to L face). She got up to take some excedrin, which usually helps, but had a hard time opening her bottle because her hand was clumsy. Her then noticed a L facial droop. The patient also had difficulty finding words at that time, which the had noticed. The patient arrived to the ED with ongoing but improving LUE weakness, numbness, paresthesias and L facial droop. The symptoms were improving rapidly. The patient had received 500 mg of asa when she took her excedrin. Her CT of the head was negative, but her MRI did confirm a 4 mm R insular acute infarct. Hospitalist admission was requested. Since arriving to the floor, the patient had an episode of 2 minutes of return of the numbness and weakness to her LUE while also perceiving that her tongue was difficult to move and words were hard to annunciate, but had no problems finding words. Her blood sugar at that time was 97, and vital signs normal. The symptoms had resolved on their own within 2 minutes. Review of Systems All systems reviewed & are unremarkable except as noted in HPI and below PFSH All Active Problems (Updated 05/07/22 @ 16:18 by Flaquita eHrnandez MD) Discharge planning issues (Acute) DVT prophylaxis (Acute) Acute CVA (cerebrovascular accident) (Acute) History of smoking 30 or more pack years (Acute) lung CT screening yearly Essential hypertension (Chronic 12/22/17) Rosacea (Chronic 11/26/14) Tinnitus of both ears (Chronic 10/21/16) Medical History (Updated 05/07/22 @ 16:18 by Falquita Hernandez MD) Arthritis of right knee (04/12/16) Bilateral hearing loss (10/21/16) Chronic otitis externa of both ears (10/21/16) Left knee pain Migraines Obesity (BMI 30-39.9) Postmenopausal bleeding 06/2019. EMBX-08/17/2019. B9 endometrial polyps. Inactive endometrium. 08/30/19 Hysteroscopic polypectomy and D &C. Tear of medial meniscus of right knee (04/12/16) Surgical History (Updated 05/07/22 @ 16:11 by Flaquita Hernandez MD) section Cholecystectomy Dilation and curettage 2 years after stopping menses had an episode of postmenopausal bleeding. Benign D&C results. S/P appendectomy Family History Mother , 92 Breast cancer Father , 80 Diabetes CAD (coronary artery disease) Lung cancer Liver cancer Sister No problems noted. Maternal Grandmother , 92 Stroke Son No problems noted. Son No problems noted. Daughter No problems noted. Maternal Grandfather Heart disease Paternal Grandfather Heart disease Social History Smoking/Tobacco Use Status: Former Tobacco Use Quit Date: 08/29/10 Tobacco: How many years used: 40 Second Hand Exposure: No Smoking risk assessment performed?: Yes Alcohol Intake: current Alcohol Intake frequency: a few times a week Alcohol type: hard liquor Drug use: Never Substance use type: does not use Details: alcohol: t-1, one drink Caregiver/Support person: No Household members: spouse and other Details: Dvaid. 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 Pets and animals: No Sexually active: Yes Do you think of yourself as: straight/heterosexual Current gender identity: female What is your relationship status?: How often do you talk on the phone with friends or family?: three or more times per week How often do you get together with friends or relatives?: three or more times per week How often do you attend tenriism or religion services?: 1-3 times per year Do you belong to any clubs or organized social groups?: no Panel score (0-1 are the most socially isolated patients): 2 What type of physical activity do you participate in: walking Duration: 30-45 minutes/day Frequency: 3-4 times per week Kaylin/Tenriism: Methodist Special kaylin needs: No Seatbelt use: always Helmet use: No Drive intox or ride w/intox pick up and delivery driver: No Do you feel safe at home: Yes Do you feel safe in your relationship?: Yes Meds Allergies and Home Medications Allergies Allergy/AdvReac Type Severity Reaction Status Date / Time Sulfa (Sulfonamide Allergy hives Verified 05/07/22 09:43 Antibiotics) Home Medications Medication Instructions Recorded Confirmed Type ibuprofen 200 mg tablet (Advil) 200 mg PO Q6H PRN 08/30/19 05/07/22 History diphenhydramine 25 1 tab PO QHS 02/26/20 05/07/22 History mg-acetaminophen 500 mg tablet (Tylenol PM Extra Strength) hydrochlorothiazide 12.5 mg tablet 12.5 mg PO DAILY #90 tab-caps 04/30/22 05/07/22 Rx Exam Narrative Exam Narrative: General: Pleasant female who appears in no distress, sitting up in a chair, does have a L facial droop, A&Ox3, NAD Neurological: A&Ox3, L facial droop, otherwise CN II-XII intact, sensory intact, L hand with difficulty with stereotypic movement, strength 4.5/5 on LUE/L hand, 5/5 in the remainining extremities, Plantar response flexion on R, equivocal on L; Patellar reflex 2+ on R, 1+ on L. Psychiatric: Appropriate speech pattern/content Skin: Visible skin intact HEENT: Atraumatic, normocephalic, EOMI, MMM, L facial droop, clear oropharynx, no submandibular or cervical lymphadenopathy, no goiter or JVD Cardiovascular: RRR, no m/r/g Lungs: CTAB Gastrointestinal: soft, nontender, nondistended Genitourinary: deferred Extremities: no edema BLEs, 1+ pedal pulses B, no lesions on B feet Results Imaging Additional studies: CT head w/ contrast: 1. No acute intracranial process. CXR: No acute pulmonary findings. Brain MRI: 1. 4 mm area of restricted diffusion in the right insula consistent with an acute infarct. 2. Age-related cerebral atrophy and small vessel ischemic disease. CTA head/neck ;1. No evidence of a large vessel occlusion or significant stenosis on the CTA of the brain.? 2. No evidence of occlusion or significant stenosis on the CT angiography of the neck. EKG: HR 78, NSR< no acute ischemia Labs Result diagrams: 05/07/22 09:45 05/07/22 09:45 Labs: Laboratory Results - last 24 hr 05/07/22 05/07/22 05/07/22 09:45 09:45 12:28 WBC 5.88 RBC 5.54 H Hgb 14.8 Hct 46.8 H MCV 85 MCH 26.7 L MCHC 31.6 L RDW 13.0 Plt Count 325 MPV 10.8 Immature Gran % 0.3 Neutrophils % 41.8 Lymphocytes % 45.1 Monocytes % 9.2 Eosinophils % 2.6 Basophils % 1.0 Nucleated RBC % 0.0 Absolute Neutrophils 2.46 Absolute Lymphocytes 2.65 Absolute Monocytes 0.54 Absolute Eosinophils 0.15 Absolute Basophils 0.06 Sodium 138 Potassium 3.6 Chloride 100 Carbon Dioxide 32.1 H Anion Gap 5.9 BUN 17 Creatinine 0.9 Est GFR (CKD-EPI 2020) 68.35 Glucose 91 Calcium 9.4 Magnesium 2.0 Total Bilirubin 0.5 AST 14 L ALT 25 Alkaline Phosphatase 81 Troponin I < 50 Total Protein 8.0 Albumin 3.8 COVID-19 Source Nasal/Nares SARS-CoV-2 (PCR) Negative 05/07/22 12:40 WBC RBC Hgb Hct MCV MCH MCHC RDW Plt Count MPV Immature Gran % Neutrophils % Lymphocytes % Monocytes % Eosinophils % Basophils % Nucleated RBC % Absolute Neutrophils Absolute Lymphocytes Absolute Monocytes Absolute Eosinophils Absolute Basophils Sodium Potassium Chloride Carbon Dioxide Anion Gap BUN Creatinine Est GFR (CKD-EPI 2020) Glucose Calcium Magnesium Total Bilirubin AST ALT Alkaline Phosphatase Troponin I < 50 Total Protein Albumin COVID-19 Source SARS-CoV-2 (PCR) Last Vital Signs Temp 36.8 C 05/07/22 15:07 Pulse 69 05/07/22 15:07 Resp 19 05/07/22 15:07 BP 137/77 05/07/22 15:07 Pulse Ox 98 05/07/22 15:07
--- NOTE | 2022-05-07 16:00 | W.SPSTE ---
Date of service: 05/07/22 Time of Service: 16:40 Subjective Clinical (Bedside) Swallow Evaluation Speech Language Pathology Patient was referred for clinical swallow evaluation by Dr. Hernandez given acute insular CVA and L facial droop with some slurring of speech and concern for impacts on swallow safety. HPI: Ms Hudson is a 71 year old right-handed female with PMHx of HTN, past tobacco abuse, migraines, obesity, who presented to [facility] ED today after noticing a L hand numbness, tingling, weakness going up her LUE to her L face. She associated some of the symptoms with a possible migraine, as those usually present with LUE numbness, but not weakness (and the symptoms never spread to L face). She got up to take some excedrin, which usually helps, but had a hard time opening her bottle because her hand was clumsy. Her then noticed a L facial droop. The patient also had difficulty finding words at that time, which the had noticed. The patient arrived to the ED with ongoing but improving LUE weakness, numbness, paresthesias and L facial droop. The symptoms were improving rapidly. The patient had received 500 mg of asa when she took her excedrin. Her CT of the head was negative, but her MRI did confirm a 4 mm R insular acute infarct. Hospitalist admission was requested. Since arriving to the floor, the patient had an episode of 2 minutes of return of the numbness and weakness to her LUE while also perceiving that her tongue was difficult to move and words were hard to annunciate, but had no problems finding words. Her blood sugar at that time was 97, and vital signs normal. The symptoms had resolved on their own within 2 minutes.? Imaging?Additional studies: CT head w/ contrast:?1. No acute intracranial process. CXR: No acute pulmonary findings. Brain MRI: 1. 4 mm area of restricted diffusion in the right insula consistent with an acute infarct. 2. Age-related cerebral atrophy and small vessel ischemic disease. CTA head/neck ;1. No evidence of a large vessel occlusion or significant stenosis on the CTA of the brain.? 2. No evidence of occlusion or significant stenosis on the CT angiography of the neck. EKG: HR 78, NSR< no acute ischemia? IMPRESSIONS & PLAN: Patient presents with safe swallow function at this time, though simply given her admitting diagnosis and fluctuating symptoms this date, as well as partial edentulousness with some difficulty chewing complex solids this date, she would benefit from soft/bite size solids to minimize risks of choking and pharyngeal stasis due to lack of adequate mastication. Further [facility] services: not warranted; please re-consult if patient's status changes. ? Instrumentation: N/A ? Diet Texture Modification(s): IDDSI Level(s) SOLIDS 6-Soft & Bite-Sized Solids - may be upgraded to regular solids upon patient request if no incidents within 24 hrs of diet LIQUIDS 0-Thin Liquids Medication Intake: Whole with 0-Thin Liquids or as tolerated RISK MANAGEMENT: HOB upright as tolerated; upright for all PO intake. Encourage physical mobility as tolerated. Oral hygiene BID/2x per day and before/after PO intake, using friction with toothbrush on all oral structures as tolerated ? Level of Assistance/Supervision: Independent PO intake only when awake/alert? Strategies/Adaptations/Assistive Equipment: Reduce auditory and/or visual distractions when eating, Small sips and bites when eating, Posture/Positioning Needs: Maintain upright position at least 30 minutes after daytime meals, Avoid meals/snacks 2-3 hours prior to reclining/sleeping, Sleep with head of bed elevated to reduce likelihood of nocturnal reflux HISTORY: All Active Problems?(Updated 05/07/22 @ 16:18 by Flaquita Hernandez MD) Discharge planning issues (Acute) DVT prophylaxis (Acute) Acute CVA (cerebrovascular accident) (Acute) History of smoking 30 or more pack years (Acute) lung CT screening yearlyEssential hypertension (Chronic 12/22/17) Rosacea (Chronic 11/26/14) Tinnitus of both ears (Chronic 10/21/16) Medical History?(Updated 05/07/22 @ 16:18 by Flaquita Hernandez MD) Arthritis of right knee (04/12/16) Bilateral hearing loss (10/21/16) Chronic otitis externa of both ears (10/21/16) Left knee pain Migraines Obesity (BMI 30-39.9) Postmenopausal bleeding 06/2019. EMBX-08/17/2019. B9 endometrial polyps. Inactive endometrium. 08/30/19 Hysteroscopic polypectomy and D &C.Tear of medial meniscus of right knee (04/12/16) Surgical History?(Updated 05/07/22 @ 16:11 by Flaquita Hernandez MD) section Cholecystectomy Dilation and curettage 2 years after stopping menses had an episode of postmenopausal bleeding.? Benign D&C results.S/P appendectomy Social History? Smoking/Tobacco Use Status:? Former Tobacco Use Quit Date: 08/29/10 Tobacco: How many years used:? 40 Second Hand Exposure:? No Smoking risk assessment performed?:? Yes Alcohol Intake:? current Alcohol Intake frequency: a few times a week Alcohol type: hard liquor Drug use:? Never Substance use type:? does not use Details:? alcohol: t-1, one drink Caregiver/Support person:? No Household members:? spouse and other Details: David.? She and her traveled to [place] for 2 mo in winter Housing:? house Number of Children:? 3 Communication Needs:? 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 Buddhist EXAMINATION: Current diet consistency: Regular/Normal Precautions: Low fall risk, Standard, CVA Subjective: Patient was contacted in her room with , children, and a grandchild present. She was seated upright in her bedside chair for this evaluation. She denies any history of s/sx aspiration (coughing, choking, wet vocal quality) aside from a few nights ago when she had an episode, describes what appears to be an episode of pharyngeal stasis which she had a strong reaction to, though did not lead to any airway obstruction. She finally was able to cough it up but also had an episode of emesis immediately thereafter. She denies any heartburn, reflux, or indigestion except for the occasional bit of gas which she takes antacids to relieve. Her and children agree confirm her subjective report as well. It is felt that the incident was an isolated one. Since onset of her symptoms, she has not had any difficulties or changes with swallow function. She does report transient slurred speech this afternoon. She and her report that her speech sounded very different, but remained 100% comprehensible throughout this episode which co-occurred with transient exacerbation of LUE symptoms. OBJECTIVE: Respiratory: tolerates room air without s/sx dyspnea Language: Grossly WFL without apparent wordfinding difficulties, responds appropriately to questions with on-topic responses and able to follow complex instructions during examiniation Mental Status: Alert and Oriented Recall of current events intact Speech: WFL without s/sx dysarthria. DDK's are WFL for precision, coordination, rate/rhythm Oral Motor Exam: ? Dentition ?Edentulous with top dentures ? Oral Mucosa ? Mild dryness with thin white coating on tongue ? Good/fair oral care ? CN V - Trigeminal ? Sensation ? WFL ? Jaw Movement ? WFL ? CN VII ? Labial/Facial ? WFL including anterior tongue sensation ? CN IX ? Palate ? WFL including posterior tongue sensation ? CN X ? Laryngeal ? MPT - DNT ? Vocal quality ? WFL ? Volitional cough ? Sharp & strong ? CN XII ? Lingual ? Impaired symmetry ? Mild L deviation (indicates L weakness) ? Strength and coordination intact ? Volitional Swallow ? Suspect robust laryngeal elevation, unable to rule out at bedside ? PO TRIALS Food items tested: ?? [ ] None. Further swallow assessment not warranted at this time.? [ ] Ice: X IDDSI 0: single sips via cup edge, consecutive sips via cup edge [ ] IDDSI 1: [ ] IDDSI 2: [ ] IDDSI 3: X IDDSI 4: pudding via tsp [ ] IDDSI 5: [ ] IDDSI 6: X IDDSI 7: crackers x 3-4 bites [ ] Pill/tablet: Oral phase: X WFL [ ] Leakage from mouth [ ] Difficulty with bolus manipulation [ ] Difficulty with a-p transport [ ] Difficulty chewing [ ] Pocketing [ ] Residue Pharyngeal phase: X WFL [ ] Delayed swallow initiation [ ] Reduced hyolaryngeal elevation/excursion [ ] Cough after swallow [ ] Voice change after swallow? [ ] Throat clearing? [ ] Endorsed stasis? Provided education to: Patient, Family, Nursing Topics Addressed: anatomy/physiology of swallowing mechanism, overt s/sx to monitor for re: potential aspiration of food / liquids, recommendations for improved oral care, relationship between respiratory function changes and deglutition, Rationale for recommendations as outlined below Outcome: Verbalized/demonstrated understanding [facility] CPT Code: 21153 Clinical Swallowing Evaluation Time spent: 35 minutes Objective Objective ? Coding
[2022-05-07] MEDS: Enoxaparin 40 MG/0.4 ML SYR SC (16:37)
[2022-05-07] MEDS: Clopidogrel 300 MG TAB 600 MG PO (17:23)
--- NOTE | 2022-05-07 18:55 | DI.VRAD_ITS ---
PROCEDURE INFORMATION: Exam: CT Head Without Contrast Exam date and time: 05/07/2022 6:45 PM Age: 71 years old Clinical indication: Stroke-like symptoms; Speech disturbance; Left facial droop; Left upper extremity numbness/paresthesia; Additional info: Recrudescence of stroke symptoms TECHNIQUE: Imaging protocol: Computed tomography of the head without contrast. Radiation optimization: All CT scans at this facility use at least one of these dose optimization techniques: automated exposure control; mA and/or kV adjustment per patient size (includes targeted exams where dose is matched to clinical indication); or iterative reconstruction. Other technique: STROKE PROTOCOL was implemented. COMPARISON: MR BRAIN WO 05/07/2022 11:36 AM FINDINGS: Brain: There is normal sulcal prominence for a patient of this age. There are mild periventricular white matter changes consistent with small vessel disease. Cerebral ventricles: The ventricular system is midline and symmetrical. It is normally dilated for a patient of this age. Paranasal sinuses: Visualized sinuses are unremarkable. No fluid levels. Mastoid air cells: Visualized mastoid air cells are well aerated. Bones/joints: Unremarkable. No acute fracture. Soft tissues: Unremarkable. IMPRESSION: Age-appropriate atrophy. ASSESSMENT: ASPECTS ([place] Stroke Program Early CT Score) is 10. Dictated and Authenticated by: Max Ambrose MD. Ordering:ZAK Sams MD
--- NOTE | 2022-05-07 18:57 | DI.CT_ITS ---
Exam(s) CT HEAD WO EXAM: CT HEAD WO CLINICAL HISTORY: recrudescence of stroke symptoms. TECHNIQUE: Imaging Protocol: Axial computed tomography images with coronal and sagittal reformatted images were created and reviewed COMPARISON: CT CT BRAIN NECK CTA from 05/07/2022 FINDINGS: There are no skull fractures nor fluid in the visualized paranasal sinuses. There is no evidence of intracranial hemorrhage, mass effect, or shift of midline structures. There are no extra-axial fluid collections. The ventricles are not enlarged or shifted and there is no blo od within the ventricular system nor within the basal cisterns. IMPRESSION: No acute intracranial findings on this noninfused CT scan of the brain. RADIATION DOSE DELIVERED: 669.55mGy.cm Total DLP DATA REPOSITORY: All CT scans at this facility are submitted to the National Radiology Data Registry (NRDR) Dose Index Registry (DIR) with the [employer] (ACR). RADIATION OPTIMIZATION: All CT scans at this facility use at least one of these dose optimization te chniques: automated exposure control; mA and/or kV adjustment per patient size (includes targeted exa ms where dose is matched to clinical indication); or iterative reconstruction.
[2022-05-07] MEDS: Atorvastatin 40 MG TAB 80 MG PO (19:30)
--- NOTE | 2022-05-08 03:05 | NUR.NOTE ---
Nursing Note: Handoff from Madeline MENDOZA. POC reviewed and discussed. Patient seen asleep in bed. Neuro checks wnl at this time. Patient stated she has been ambulating to bathroom, gait steady. No current residuals to extremities. Facial droop appears. Will continue to monitor closely.
[2022-05-08 03:12] VITALS: BP 102/66; PULSE 82; RESP 18; TEMP 36.3; O2SAT 97
[2022-05-08 07:22] LABS: Abs Immature Grans 0.02 10^3/uL (0.0-0.06); Absolute Basophil Count 0.04 10^3/uL (0.0-0.2); Absolute Eosinophil Count 0.16 10^3/uL (0.0-0.7); Absolute Monocyte Count 0.56 10^3/uL (0.1-0.8); Absolute Neutrophil Count 3.15 10^3/uL (1.2-6.7); Basophils % 0.6; Eosinophils % 2.4; HCT 43.4 % (36.0-46.0); HGB 14.3 g/dL (11.2-15.7); Immature Grans % 0.3; Lymphocytes % 41.6; MCH 27.1 pg (27.0-33.0); MCHC 32.9 % (32.0-36.0); MCV 82 fL (80-95); Monocytes % 8.3; Neutrophils % 46.8; RBC 5.28 10^6/uL (3.93-5.22); RDW 13.2 % (11.7-14.6); RDW-SD 39.4 fL; WBC 6.73 10^3/uL (4.4-10.8)
[2022-05-08 07:31] VITALS: BP 125/82; PULSE 74; RESP 18; TEMP 36.7; O2SAT 94
[2022-05-08 07:50] LABS: Diff Comment Diff Reviewed; RBC Morphology Normal
[2022-05-08 07:55] LABS: Hemoglobin A1C 5.3 % (<5.7)
[2022-05-08 08:01] VITALS: PULSE 68
[2022-05-08 08:04] LABS: Anion Gap 10.3 mmol/L (3-11); BUN 14 mg/dL (7-18); CO2 27.7 mmol/L (21.0-32.0); CREATININE 0.9 mg/dL (0.55-1.02); Calcium 8.9 mg/dL (8.5-10.1); Calculated LDL 126 mg/dL (<100); Chloride 104 mmol/L (98-107); Cholesterol 233 mg/dL (<200); Estimated GFR 68.35 (mL/min/1.73m2); Glucose 93 mg/dL (74-106); HDL Cholesterol 58 mg/dL (40-60); Potassium 3.8 mmol/L (3.5-5.1); Sodium 142 mmol/L (136-145); TSH 2.05 uIU/mL (0.36-3.74); Triglyceride 246 mg/dL (<150); Vitamin B12 347 pg/mL (193-986)
[2022-05-08] MEDS: Aspirin E.C. 81 MG TABEC PO (08:20)
[2022-05-08] MEDS: Clopidogrel 75 MG TAB PO (08:20)
[2022-05-08] MEDS: Pantoprazole 20 MG TABCR PO (08:20)
--- NOTE | 2022-05-08 10:02 | PDOC.CMIN ---
- If Service Date Differs Date of service: 05/08/22 Time of Service: 10:02 Care Management Initial Assess REASON FOR HOSPITALIZATION:: Acute CVA PAST MEDICAL HISTORY/PAST SURGICAL HISTORY:: All Active Problems (Updated 05/07/22 @ 16:18 by Flaquita Hernandez MD). Discharge planning issues (Acute). DVT prophylaxis (Acute). Acute CVA (cerebrovascular accident) (Acute). History of smoking 30 or more pack years (Acute). lung CT screening yearly. Essential hypertension (Chronic 12/22/17). Rosacea (Chronic 11/26/14). 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 Medical History (Updated 05/07/22 @ 16:18 by Flaquita Hernandez MD). Arthritis of right knee (04/12/16). Bilateral hearing loss (10/21/16). Chronic otitis externa of both ears (10/21/16). Left knee pain. Migraines. Obesity (BMI 30-39.9). Postmenopausal bleeding. 06/2019. EMBX-08/17/2019. B9 endometrial polyps. Inactive endometrium. 08/30/19 Hysteroscopic polypectomy and D &C. Tear of medial meniscus of right knee (04/12/16). Surgical History (Updated 05/07/22 @ 16:11 by Flaquita Hernandez MD). section. Cholecystectomy. Dilation and curettage. 2 years after stopping menses had an episode of postmenopausal bleeding. Benign D&C results. S/P appendectomy PREVIOUS FUNCTIONAL STATUS/SOCIAL/FAMILY SUPPORTS:: Ashley lives in [place] with her Master. She is independent at baseline. CURRENT FUNCTIONAL STATUS:: Ashley was pacing in her room when met with her. She was dressed and was waiting to be discharged. Ashley described herself as tired and cranky and really wanting to go home. She stated she was up all night and now that her symptoms have all resolved except for her left hand which doesn't feel normal, she is ready to leave. She did have questions about Neurology and was pleased too hear that there is a neurologist on staff at [facility]. In actuality, Ashley was very pleasant and joked a lot but did state that she really is looking forward to going home. ADVANCE DIRECTIVES:: none on file Has patient been provided with info about the portal/API?: Yes Did the patient sign up for the portal?: Yes (previously) CODE STATUS:: Full Code INSURANCE COVERAGE / FINANCIAL ISSUES:: Medicare. [employer] CURRENT HOME/COMMUNITY SERVICES/EQUIPMENT:: Ashley will likely be discharged home with no new services. She will followw up with her PCP and plan of care and transport with her . PRIMARY CARE PHYSICIAN:: Deidre Helton POTENTIAL DISCHARGE NEEDS:: follow up with PCP, neurology and plan of care as prescribed PATIENT/FAMILY EDUCATION NEEDS:: Review of discharge instructions, limitations, activity, follow up plan, discuss Ask Me Three TRANSPORTATION:: via private vehicle with PLAN:: Ashley will likley be discharged home with no new services. She will follow up with her PCP, Neurology and plan of care as prescribed and transport with her . CM will support Ashley and assess for discharge needs.
[2022-05-08 11:28] VITALS: BP 127/81; PULSE 77; RESP 18; TEMP 36.7; O2SAT 99
--- NOTE | 2022-05-08 13:31 | W.PM.DS.N ---
Date of service: 05/08/22 Time of Service: 13:31 DS: Diagnosis Discharge Diagnosis (1) Acute CVA (cerebrovascular accident): Status: Acute (2) Essential hypertension: Status: Chronic (3) Migraines: (4) Obesity (BMI 30-39.9): Discharge Plan Disposition Patient Disposition: HOME Condition: Improving Discharge Details Reason For Visit: Acute CVA Admit Date/Time: 05/07/22 12:34 Admit Provider: Flaquita Hernandez Attending Provider: Flaquita Hernandez Primary Care Provider: [facility] Hospital Course: Ms Hudson is a 71 year old female with PMHx of HTN, past tobacco abuse, migraines, obesity with BMI of 34.8 kg/m2, who is right-handed presented to [facility] ED after noticing left hand numbness, tingling, weakness going up her LUE to her L face. She associated some of the symptoms with a possible migraine, as those usually present with LUE numbness, but not weakness (and the symptoms never spread to L face). She got up to take some excedrin, which usually helps, but had a hard time opening her bottle because her hand was clumsy. Her then noticed a L facial droop. The patient also had difficulty finding words at that time, which the had noticed. The patient arrived to the ED with ongoing but improving LUE weakness, numbness, paresthesias and L facial droop. The symptoms were improving rapidly. The patient had received 500 mg of asa when she took her excedrin. Her CT of the head was negative, but her MRI did confirm a 4 mm R insular acute infarct. Hospitalist admission was requested. Since arriving to the floor, the patient had an episode of 2 minutes of return of the numbness and weakness to her LUE while also perceiving that her tongue was difficult to move and words were hard to annunciate, but had no problems finding words. Her blood sugar at that time was 97, and vital signs normal. The symptoms had resolved on their own within 2 minutes.? Overnight she did not experience any further symptoms. Her vitals remained stable. she remained in NSR on telemetry with no dysrythmias noted. Her symptoms resolved other than some mild funny feeling in the tips of her fingers on left hand. Hand grasp was strong and equal to the right and she was able to perform finger to nose with ease and no ataxia or difficulties. facial symmetrical and neuro exam unremarkable. She is requesting discharge to home and has been evaluated by speech and physical therapy. she is tolerating regular diet without difficulty. She will complete her stroke work up outpatient as not available inpatient at this time. She will continue asa, plavix and statin and was advised to continue to hold her hctz until follow up and to discuss when and if to resume then. She was advised to return immediately for new or worsening symptoms. 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 discharge discussed with Dr Pond. Home Meds and New Rx's Prescriptions: New atorvastatin 40 mg Tablet 80 mg PO QPM Qty: 60 0RF clopidogrel 75 mg Tablet 75 mg PO DAILY Qty: 30 0RF aspirin 81 mg Tablet,Delayed Release (Dr/Ec) 81 mg PO DAILY Qty: 30 0RF Continued diphenhydramine-acetaminophen [Tylenol PM Extra Strength] 25-500 mg tablet 1 tab PO QHS Held hydrochlorothiazide 12.5 mg tablet 12.5 mg PO DAILY Qty: 90 0RF Hold Instructions: until directed by neurology Label Comments: 08/27/19 Pt states she is not taking currently. PG No Action ibuprofen [Advil] 200 mg Tablet 200 mg PO Q6H PRN Discharge Instructions Instructions: Stroke (DC) Stand Alone Forms: Nursing Discharge Form Referrals: Deidre Helton [employer] WEIGHER [Primary Care Provider] - (PLEASE CALL TUESDAY FOR FOLLOW UP APPOINTMEN) Tabitha Sanchez MD [ [facility] STAFF PHYSICIAN] - (OFFICE WILL CALL YOU WITH REFERRAL APPOINTMENT) Activity:: Activity as Tolerated Equipment/Supplies:: No Equipment Needed Diet:: As Tolerated Discharge Orders Discharge Orders: Discharge Order (Routine); Ordered 05/08/22 Ordered By: Nadia Stallings Other Ambulatory Orders: Cardiac Event Recorder (Routine) Timeframe: [id number] Facility: [facility] - Location: Respiratory Therapy Ordered By: Nadia Stallings echocardiogram (Routine) Location: None Selected Ordered By: Nadia Stallings Discharge Data Discharge Date/Time-TO BE ENTERED AT DEPARTURE: 05/08/22 14:14 DS: Summary Time Spent with Patient providing and/or coordinating discharge services: Less than 30 minutes Status at Discharge Functional status at discharge: independent ambulation Overall status at discharge: patient is progressing back to baseline Mental Status: mental status grossly normal Speech and Movement: speech and movement normal Mood: congruent mood Affect: normal affect Exam Const General: cooperative, comfortable and no acute distress Nutritional Appearance: obese Orientation: alert, awake and oriented x3 HENMT Head: normal to inspection, normocephalic, atraumatic and other Face and sinus: normal facial exam and face symmetric Mouth: oral mucosae normal Chest Chest: normal inspection of the chest Resp Effort & Inspection: normal respiratory effort Cardio Rate: regular rate Rhythm: regular rhythm and other (sinus rhythm on telemetry, no dysrhythmias) GI Inspection: normal to inspection Palpation: soft Skin General skin exam: no rashes or lesions noted Neuro General: patient alert, patient awake, patient oriented x3 and no focal motor deficits Cranial Nerves: EOM intact bilaterally, facial strength normal, tongue midline and able to elevate shoulders bilaterally Cognition: normal cognition Speech: speech normal Gait: normal gait Motor: muscle tone normal throughout and strength 5/5 throughout Coordination: [id number] test normal Extrem General: normal to inspection and full ROM Psych Appearance: grossly normal Mental Status: mental status grossly normal Speech and Movement: speech and movement normal Mood: congruent mood Affect: normal affect Attitude: cooperative Thought Process: normal Thought Content: normal Insight: insight good Judgment: judgment good DS: Data Vitals/I&O Vitals and I&O: Vital Signs Temperature 36.7 C 05/08/22 11:28 Temperature Source Tympanic 05/08/22 11:28 Pulse 77 05/08/22 11:28 Pulse Rhythm Regular 05/08/22 08:00 Pulse 68 05/07/22 13:01 Respiratory Rate 18 05/08/22 11:28 Respiratory Effort Non-Labored 05/08/22 08:00 Respiratory Depth Normal 05/08/22 08:00 Respiratory Pattern Normal 05/08/22 08:00 Blood Pressure 127/81 05/08/22 11:28 Blood Pressure Mean 76 05/07/22 13:00 Blood Pressure Position Supine 05/07/22 09:37 Pulse Oximetry 99 05/08/22 11:28 Oxygen Delivery Method Room Air 05/08/22 11:28 Oxygen Flow Rate 0 05/08/22 11:28 Pain Level 0 05/07/22 22:30 Intake & Output 05/07/22 05/08/22 05/08/22 23:59 11:59 23:59 Output Total Balance - Weight 100.9 kg 100.7 kg Output: Urine Other: Urine Color Pale Urine Appearance Clear Clear Urine Odor None Voiding Methods Toilet Data Completed and Pending Labs on day of discharge: Labs from last 24 hours 05/08/22 05/08/22 05/08/22 06:00 06:00 06:00 WBC 6.73 RBC 5.28 H Hgb 14.3 Hct 43.4 MCV 82 MCH 27.1 MCHC 32.9 RDW 13.2 Plt Count MPV Immature Gran % 0.3 Neutrophils % 46.8 Lymphocytes % 41.6 Monocytes % 8.3 Eosinophils % 2.4 Basophils % 0.6 Nucleated RBC % 0.0 Absolute Neutrophils 3.15 Absolute Lymphocytes 2.80 Absolute Monocytes 0.56 Absolute Eosinophils 0.16 Absolute Basophils 0.04 RBC Morphology Normal Sodium Potassium Chloride Carbon Dioxide Anion Gap BUN Creatinine Est GFR (CKD-EPI 2020) Glucose Hemoglobin A1c 5.3 Calcium Magnesium Triglycerides Cancelled Total Cholesterol Cancelled LDL Cholesterol, Calc Cancelled HDL Cholesterol Cancelled Vitamin B12 Cancelled TSH 05/08/22 06:00 WBC RBC Hgb Hct MCV MCH MCHC RDW Plt Count MPV Immature Gran % Neutrophils % Lymphocytes % Monocytes % Eosinophils % Basophils % Nucleated RBC % Absolute Neutrophils Absolute Lymphocytes Absolute Monocytes Absolute Eosinophils Absolute Basophils RBC Morphology Sodium 142 Potassium 3.8 Chloride 104 Carbon Dioxide 27.7 Anion Gap 10.3 BUN 14 Creatinine 0.9 Est GFR (CKD-EPI 2020) 68.35 Glucose 93 Hemoglobin A1c Calcium 8.9 Magnesium 2.0 Triglycerides 246 H Total Cholesterol 233 H LDL Cholesterol, Calc 126 H HDL Cholesterol 58 Vitamin B12 347 TSH 2.05 PFSH All Active Problems (Updated 05/07/22 @ 16:18 by Flaquita Hernandez MD) Discharge planning issues (Acute) DVT prophylaxis (Acute) Acute CVA (cerebrovascular accident) (Acute) History of smoking 30 or more pack years (Acute) lung CT screening yearly Essential hypertension (Chronic 12/22/17) Rosacea (Chronic 11/26/14) Tinnitus of both ears (Chronic 10/21/16) Medical History (Updated 05/07/22 @ 16:18 by Flaquita Hernandez MD) Arthritis of right knee (04/12/16) Bilateral hearing loss (10/21/16) Chronic otitis externa of both ears (10/21/16) Left knee pain Migraines Obesity (BMI 30-39.9) Postmenopausal bleeding 06/2019. EMBX-08/17/2019. B9 endometrial polyps. Inactive endometrium. 08/30/19 Hysteroscopic polypectomy and D &C. Tear of medial meniscus of right knee (04/12/16) Surgical History (Updated 05/07/22 @ 16:11 by Flaquita Hernandez MD) section Cholecystectomy Dilation and curettage 2 years after stopping menses had an episode of postmenopausal bleeding. Benign D&C results. S/P appendectomy Family History Mother , 92 Breast cancer Father , 80 Diabetes CAD (coronary artery disease) Lung cancer Liver cancer Sister No problems noted. Maternal Grandmother , 92 Stroke Son No problems noted. Son No problems noted. Daughter No problems noted. Maternal Grandfather Heart disease Paternal Grandfather Heart disease Social History Smoking/Tobacco Use Status: Former Tobacco Use Quit Date: 08/29/10 Tobacco: How many years used: 40 Second Hand Exposure: No Smoking risk assessment performed?: Yes Alcohol Intake: current Alcohol Intake frequency: a few times a week Alcohol type: hard liquor Drug use: Never Substance use type: does not use Details: alcohol: t-1, one drink Caregiver/Support person: No Household members: spouse and other Details: David. 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 Pets and animals: No Sexually active: Yes Do you think of yourself as: straight/heterosexual Current gender identity: female What is your relationship status?: How often do you talk on the phone with friends or family?: three or more times per week How often do you get together with friends or relatives?: three or more times per week How often do you attend taoism or worship services?: 1-3 times per year Do you belong to any clubs or organized social groups?: no Panel score (0-1 are the most socially isolated patients): 2 What type of physical activity do you participate in: walking Duration: 30-45 minutes/day Frequency: 3-4 times per week Kaylin/Hinduism: Buddhist Special kaylin needs: No Seatbelt use: always Helmet use: No Drive intox or ride w/intox regional dedicated truck driver: No Do you feel safe at home: Yes Do you feel safe in your relationship?: Yes
--- NOTE | 2022-05-08 16:20 | PDOC.CMDIS ---
- If Service Date Differs Date of service: 05/08/22 Time of Service: 16:20 LACE Index Scoring Tool - Questions: Length of Stay (in days): 1 Acuity (Admit via E.D.?): Yes Comorbidities: Cerebrovascular Disease E.D. Visits: 1 - Answers: Total Score: 6 Risk of Readmission: Low Risk Care Management Discharge Reason for Hospitalization: Acute CVA Discharge Plan: Ashley will be discharged home with no new services. She will follow up with her PCP, Neurology and plan of care as prescribed and transport with her . Patient/Family Education Needs: Review of discharge instructions, limitations, activity, follow up plan, discuss Ask Me Three
== END 2022-05-08 14:14 | disposition home or self-care (01) | DRG 66 ==
LOC: ER 12:48 → MS 13:28
PROVIDERS: Admitting Provider Internal Medicine; Emergency Provider Emergency Medicine; PCP Nurse Practitioner; Visit Provider Internal Medicine
DX: I63.9 Cerebral infarction, unspecified (principal); G43.909 Migraine, unspecified, not intractable, without status migrainosus; I10 Essential (primary) hypertension; E66.9 Obesity, unspecified; Z68.34 Body mass index [BMI] 34.0-34.9, adult; R29.810 Facial weakness; L71.9 Rosacea, unspecified; Z87.891 Personal history of nicotine dependence; R20.2 Paresthesia of skin
CPT/HCPCS: 36415; 36416; 70496; 70498; 80048; 80053; 80061; 82962; 87635; 92610; 93005; 96360; 97162; 99284; 99285; J1650; 70450; 70551; 71045; 82607; 83036; 83735; 84443; 84484; 85025; 93010; 99223; 99238; J3490

== ENCOUNTER 2022-05-17 11:00 | Outpatient (CLI) | payer MEDICARE, OTHER, SELFPAY | END 2022-05-17 11:01 | LOC: RT 11:01 | PROVIDERS: PCP Nurse Practitioner; Visit Provider Nurse Practitioner Acute Care | DX: I63.9 Cerebral infarction, unspecified (principal) | CPT/HCPCS: 93270 ==

== ENCOUNTER → 2022-05-20 13:37 | Outpatient (BNVA) | payer MEDICARE, OTHER, SELFPAY | PROVIDERS: PCP Family Medicine; Referring Provider Family Medicine; Visit Provider Psychiatry & Neurology Neurology | DX: Z86.73 Personal history of transient ischemic attack (TIA), and cerebral infarction without residual deficits (principal); Z79.02 Long term (current) use of antithrombotics/antiplatelets; E53.8 Deficiency of other specified B group vitamins; I65.21 Occlusion and stenosis of right carotid artery | CPT/HCPCS: 99215 ==

== ENCOUNTER → 2022-05-21 00:17 | Outpatient (CLI) | payer MEDICARE, OTHER, SELFPAY ==
--- NOTE | 2022-05-21 07:45 | DI.US_ITS ---
Exam(s) US CAROTID EXAM: US CAROTID CLINICAL HISTORY: R carotid stenosis,i63.9,cva. TECHNIQUE: Ultrasound carotids performed using grayscale, color-flow, and spectral Doppler imaging. COMPARISON: No exams were available for comparison FINDINGS: RIGHT CAROTID ARTERY: Plaque: Small focus of plaque at the proximal right internal carotid artery. Velocity elevation: None. LEFT CAROTID ARTERY: Plaque: Minimal. Velocity elevation: None. VERTEBRAL ARTERIES: Antegrade flow. Measurements: R Bulb: 73.7cm/s PS / 21.9cm/s ED R CCA: 81.5cm/s PS / 20.6cm/s ED R ECA: 126.1cm/s PS / 28.1cm/s ED R ICA Prox: 65.9cm/s PS / 19.3cm/s ED R ICA Mid: 72.4cm/s PS / 16.7cm/s ED R ICA Distal: 80.2cm/s PS /20.6cm/s ED R Vert: 46.9cm/s PS / 10.8cm/s ED R SVR: 1 R DVR: 1 L Bulb: 83.8cm/s PS / 21.7cm/s ED L CCA: 91.1cm/s PS / 23.5cm/s ED L ECA: 105.7cm/s PS / 14.4cm/s ED L ICA Prox: 57.8cm/s PS / 15.2cm/s ED L ICA Mid: 53.4cm/s PS / 19.6cm/s ED L ICA Distal: 86.2cm/s PS / 28.3cm/s ED L Vert: 59.7cm/s PS / 19.8cm/s ED L SVR: 0.9 L DVR: 1.2 IMPRESSION: No evidence for hemodynamically significant internal carotid artery stenosis. Criteria for Carotid Stenosis: Normal: ICA PSV <125 cm/s no plaque or intimal thickening is visible. <50% stenosis: ICA PSV <125 cm/s and plaque or intimal thickening is visible. 50-69% stenosis: ICA PSV is 125-250 cm/s and plaque is visible. >70% stenosis to near occlusion: ICA PSV >250 cm/s with visible plaque and luminal narrowing. DATA REPOSITORY:
== END ==
PROVIDERS: PCP Family Medicine; Visit Provider Psychiatry & Neurology Neurology
DX: I63.9 Cerebral infarction, unspecified (principal)
CPT/HCPCS: 93880

== ENCOUNTER 2022-06-21 14:47 | Outpatient (CLI) | payer MEDICARE, OTHER, SELFPAY ==
--- NOTE | 2022-06-21 14:49 | W.CARDEVENT ---
Date of service: 06/21/22 Time of Service: 14:49 Cardiac Event Recorder Referring Provider:: Deidre Helton Indications:: Stroke Cardiac Event Note: This is a 30-day cardiac event monitor, reportedly ordered for stroke Rhythm throughout was sinus. Average heart rate was 77. Minimum was 57, maximum 108 There was no atrial fibrillation, no high-grade AV block, no pauses greater than 3 seconds. Atrial premature beats and infrequent there were no apparent patient's symptoms very brief self-limited atrial runs were noted, the longest of these was 6 beats in duration There were rare PVCs
== END 2022-06-21 14:48 | disposition home or self-care (01) ==
LOC: CARDOPNVT 14:47
PROVIDERS: PCP Nurse Practitioner; Visit Provider Internal Medicine Cardiovascular Disease
DX: I63.9 Cerebral infarction, unspecified (principal); I49.1 Atrial premature depolarization
CPT/HCPCS: 93248

== ENCOUNTER → 2022-07-14 02:23 | Outpatient (CLI) | payer MEDICARE, OTHER, SELFPAY ==
--- NOTE | 2022-07-14 12:33 | DI.MAMMO_ITS ---
Exam(s) MAMMO SCREENING EXAM: MAMMO SCREENING CLINICAL HISTORY: screening TECHNIQUE: Mammograms were interpreted according to the usual protocol including computer analysis w [facility] CAD system, tomosynthesis and C-view imaging. COMPARISON: 2015 through 2019 FINDINGS: The breasts are composed of scattered fibroglandular densities, Breast Density category B. No suspicious masses or suspicious microcalcifications are seen. No skin thickening or abnormal axillary lymph nodes are seen. There has been no significant change from prior exams. IMPRESSION: BI-RADS Category 1, Negative mammogram Yearly screening mammography is recommended. Breast Density - Category B, scattered fibroglandular densities. A negative radiographic report should not delay biopsy if a dominant or clinically suspicious mass is present. Up to ten percent of cancers are not identified on mammography. A negative report may reinforce clinical impression. Adenosis and dense breasts may obscure an underlying neoplasm. False positive reports average 6 to 10%. Patient will receive a letter notifying them of these results.
== END ==
PROVIDERS: PCP Nurse Practitioner Family; Visit Provider Obstetrics & Gynecology Gynecology
DX: Z12.31 Encounter for screening mammogram for malignant neoplasm of breast (principal)
CPT/HCPCS: 77063; 77067

== ENCOUNTER → 2022-07-19 01:34 | Outpatient (CLI) | payer MEDICARE, OTHER, SELFPAY ==
--- NOTE | 2022-07-19 08:15 | DI.US_ITS ---
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 Estimated ejection fraction is 55 to 60%. Wall motion is normal Normal right ventricular size and systolic function Both atria are normal in size Mild mitral annular calcification with trace regurgitation Trileaflet aortic valve without stenosis or regurgitation Normal tricuspid valve with mild regurgitation. Estimated right ventricular systolic pressure is 26 mmHg Mildly dilated ascending aorta measuring 3.37 cm Wall motion Left Ventricle The left ventricle is normal size. The left ventricular systolic function is normal. The left ventric ular ejection fraction is within the normal range. There is normal left ventricular wall thickness. T here is normal LV segmental wall motion. There is no ventricular septal defect visualized. LVEF is 58 %. Right Ventricle The right ventricle is normal size. The right ventricular systolic function is normal. The RVSP is 25 .8 mmHg. Atria The left atrium size is normal. The right atrium size is normal. The interatrial septum is intact wit h no evidence for an atrial septal defect. Aortic Valve The aortic valve is normal in structure. Aortic valve is trileaflet. There is no aortic valvular sten osis. No aortic regurgitation is present. Mitral Valve Mild mitral annular calcification. No evidence of mitral valve stenosis. Trace mitral regurgitation. Tricuspid Valve The tricuspid valve is normal in structure. There is no tricuspid valve stenosis. Mild tricuspid regu rgitation. Pulmonic Valve The pulmonary valve is normal in structure. There is no pulmonic valvular stenosis. Trace pulmonic re gurgitation. Great Vessels The aortic root is normal in size. The ascending aorta is mildly dilated. IVC is normal in size and c ollapses >50% with inspiration. Pericardium There is no pericardial effusion. 2D Dimensions IVSD d PLAX 1.00 cm F: 0.6-1.0 LV Vol A2C d MOD 74.0 mL LVPW d PLAX 1.03 cm F: 0.6 - 1.0 LV Vol A4C d MOD 99.8 mL LVID d PLAX 4.62 cm F: 3.8 - 5.2 LA vol/ BSA A4C s A-L 28.5 mL/m2 LVDs 3.30 cm F: 2.2 - 3.5 LA Area A4C s MOD 20.51 cm2 Ao Root d 2.71 cm F: 2.7 - 3.3 LV EF A4C MOD 58.9 % RA Area A4C 12.72 cm2 LV EF A2C MOD 58.5 % RA Vol/ BSA A4C s A-L 13.7 mL/m2 LV EF Biplane MOD 58.4 % Ao Asc Diam d 3.37 cm F: 2.3 - 3.1 SV 50.77 mL LV EF Teichholz 54.1 % SV Index 23.97 mL/m2 LVEF ([place]) 58.40 % F: 54 - 74 LV Volume 63.99 mL F: 46 - 106 LV Volume Index 30.32 mL/m2 F: 29 - 61 LV Vol Biplane MOD 86.9 mL FS 27.90 % M-Mode TAPSE 2.75 cm (M/F) >1.7 LV Diastology MV E' medial 0.077 (>0.07 m/s) E/A Ratio 1.0 LV E/e MED 10.50 (<14) MV E Vmax 0.81 (0.4-1.3 m/s) MV E' lateral 0.080 (>0.1 m/s) MV A Vmax 0.85 (0.4-1.3 m/s) LV E/e LAT 10.10 (<14) MV E/A Ratio 0.94 MV E/E' medial 10.53 MV E/E' lateral 10.10 Aortic Valve LVOT Area 3.28 cm2 AoV Area Vmax 2.51 cm2 LVOT Vmax 0.90 m/s AoV Area/ BSA (Vmax) 1.19 cm2/m2 LVOT Mean Brock. 0.67 m/s ALEXX Mean Brock. 2.48 cm2 LVOT Peak Grad 3.2 mmHg ALEXX Mean Brock. Index 1.17 cm2/m2 LVOT Mean Grad 2.0 mmHg LVOT VTI 0.222 m LVOT Diam s 2.00 cm AoV Vmax 1.17 m/s Velocity Ratio 0.76 AoV Mean Brock. 0.88 m/s AoV Peak Grad 5.5 mmHg LVOT SV 72.77 mL AoV Mean Grad 3.4 mmHg AoV VTI 0.271 m AoV Area VTI 2.69 cm2 AoV Area/ BSA (VTI) 1.27 cm/m2 Mitral Valve MV DT 240 (160-240 msec) MV PHT 70 msec MV Area PHT 3.16 cm2 MV VTI 0.268 m MV Area VTI 2.72 (4.0-6.0 cm2) Pulmonary Valve PV Vmax 0.98 (0.5-1.5 m/s) RVOT Peak Gr. 1.28 mmHg PV Peak Grad 3.8 mmHg RVOT Mean Gr. 0.65 mmHg PV Mean Grad 1.9 mmHg RVOT VTI 0.121 m PV VTI 0.183 m RVOT Vmax 0.57 m/s Tricuspid Valve TR Peak Grad 22.7 mmHg TR Vmax 2.39 m/s RA Pressure 3.00 mmHg RVSP (TR) 25.8 mmHg
== END ==
PROVIDERS: PCP Nurse Practitioner Family; Visit Provider Psychiatry & Neurology Neurology
DX: I63.9 Cerebral infarction, unspecified (principal)
CPT/HCPCS: 93306

== ENCOUNTER → 2022-07-29 10:04 | Outpatient (BNVA) | payer MEDICARE, OTHER, SELFPAY | PROVIDERS: PCP Nurse Practitioner Family; Referring Provider Family Medicine; Visit Provider Psychiatry & Neurology Neurology | DX: Z09 Encounter for follow-up examination after completed treatment for conditions other than malignant neoplasm (principal); Z86.73 Personal history of transient ischemic attack (TIA), and cerebral infarction without residual deficits; Z79.82 Long term (current) use of aspirin; Z79.02 Long term (current) use of antithrombotics/antiplatelets; E53.8 Deficiency of other specified B group vitamins; I10 Essential (primary) hypertension; I65.21 Occlusion and stenosis of right carotid artery | CPT/HCPCS: 99214 ==

== ENCOUNTER → 2023-05-26 03:40 | Outpatient (CLI) | payer MEDICARE, OTHER, SELFPAY ==
--- NOTE | 2023-05-26 08:15 | DI.CTLCSR_ITS ---
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 TECHNIQUE: Imaging Protocol: Low Dose Technique CONTRAST MATERIAL: None COMPARISON: CT CT CHEST LUNG CANCER SCREEN from 03/24/2021 FINDINGS: CHEST: LUNGS: Previously described 4 millimeter nodule in the right middle lobe is unchanged from 02/2021.. Previously described 2 millimeter nodule in the right lower lobe adjacent to the right major fissure is also unchanged. There are no new significant focal right lung findings and there are no pleural effusions. In the opposite-left lung there are also no new significant findings. Previously described tiny nodu le in the anterior basal segment of the left lower lobe is again noted and has appearance of a calcif ied granuloma.. No new left lung nodules nor pleural effusion. Slight ground-glass haziness is note d in the left lung base, specifically in the posterior basal segment of the left lower lobe. MEDIASTINUM: There is no obvious hilar nor mediastinal adenopathy. CARDIAC: Heart size is normal. There is no pericardial effusion.Mild coronary artery calcification. Caliber thoracic aorta is within normal limits. OTHER: Prior cholecystectomy. OSSEOUS: No significant osseous lesions.No fractures.. IMPRESSION: 1. Stable small benign-appearing bilateral lung nodules, unchanged from prior CT scan of 03/24/2021. There are no new additional lung nodules nor pleural effusions nor intrathoracic adenopathy. 2. Subtle ground-glass a density in the left lower lobe is probably related to air trapping. 3. Lung RADS Cat 2 - Benign Appearance / Behavior: Nodules with a very low likelihood of becoming a c linically active cancer due to size or lack of growth Lung-RADS 1.0 CATEGORIES: Category 0 - Prior chest CT exam(s) being located for comparison. Category 1 - Annual screening in 12 months. No nodules or definitely benign nodules. Category 2 - Annual screening in 12 months. Benign appearance. Nodules with low likelihood of becomin g active cancer. Category 3 - 6-month follow-up. Probably benign. Short-term follow-up suggested. Nodules with low lik elihood of becoming active cancer. Category 4A - 3-month follow-up and CT/PET if >8 mm in size. Suspicious finding. Findings which requi re additional testing. Category 4B - Findings which require additional testing and tissue sampling. Category 4X - Category 3 or 4 nodules with additional features or imaging findings that increases the suspicion of malignancy. Modifier S- Potentially clinically significant findings (non lung cancer) RADIATION DOSE DELIVERED: 90.92mGy.cm Total DLP DATA REPOSITORY: All CT scans at this facility are submitted to the National Radiology Data Registry (NRDR) Dose Index Registry (DIR) with the [employer] ([employer]). RADIATION OPTIMIZATION: All CT scans at this facility use at least one of these dose optimization te chniques: automated exposure control; mA and/or kV adjustment per patient size (includes targeted exa ms where dose is matched to clinical indication); or iterative reconstruction.
== END ==
PROVIDERS: PCP Nurse Practitioner Family; Visit Provider Nurse Practitioner Family
DX: Z87.891 Personal history of nicotine dependence; Z12.2 Encounter for screening for malignant neoplasm of respiratory organs; R91.1 Solitary pulmonary nodule
CPT/HCPCS: 71271

== ENCOUNTER 2023-06-08 02:22 | Outpatient (CLI) | payer MEDICARE, OTHER, SELFPAY ==
[2023-06-08 08:50] LABS: HCT 45.2 % (36.0-46.0); HGB 14.3 g/dL (11.2-15.7); MCH 26.7 pg (27.0-33.0); MCHC 31.6 % (32.0-36.0); MCV 85 fL (80-95); MPV 10.6 fL (8.0-11.0); Platelet Count 281 10^3/uL (130-400); RBC 5.35 10^6/uL (3.93-5.22); RDW 13.2 % (11.7-14.6); RDW-SD 40.7 fL; WBC 5.94 10^3/uL (4.4-10.8)
[2023-06-08 09:36] LABS: ALT 33 U/L (14-59); AST 21 U/L (15-37); Albumin 3.4 g/dL (3.4-5.0); Alkaline Phosphatase 120 U/L (46-116); Anion Gap 6.2 mmol/L (3-11); BUN 17 mg/dL (7-18); Bilirubin, Total 0.5 mg/dL (0.2-1.0); CO2 27.8 mmol/L (21.0-32.0); CREATININE 0.8 mg/dL (0.55-1.02); Calcium 8.9 mg/dL (8.5-10.1); Calculated LDL 84 mg/dL (<100); Chloride 108 mmol/L (98-107); Cholesterol 172 mg/dL (<200); Estimated GFR 78.24 (mL/min/1.73m2); Glucose 101 mg/dL (74-106); HDL Cholesterol 69 mg/dL (40-60); Potassium 4.2 mmol/L (3.5-5.1); Sodium 142 mmol/L (136-145); Total Protein 7.3 g/dL (6.4-8.2); Triglyceride 96 mg/dL (<150); Vitamin B12 1043 pg/mL (193-986)
== END 2023-06-08 02:23 | disposition home or self-care (01) ==
LOC: LBO 02:22
PROVIDERS: PCP Nurse Practitioner Family; Visit Provider Nurse Practitioner Family
DX: E11.9 Type 2 diabetes mellitus without complications (principal); I10 Essential (primary) hypertension; I65.21 Occlusion and stenosis of right carotid artery; L98.9 Disorder of the skin and subcutaneous tissue, unspecified; Z00.00 Encounter for general adult medical examination without abnormal findings; Z87.891 Personal history of nicotine dependence; E53.8 Deficiency of other specified B group vitamins; I63.9 Cerebral infarction, unspecified
CPT/HCPCS: 36415; 80053; 80061; 85027; 82607

== ENCOUNTER → 2023-12-15 03:58 | Outpatient (CLI) | payer MEDICARE, OTHER, SELFPAY ==
--- NOTE | 2023-12-15 15:25 | DI.CT_ITS ---
Exam(s) CT CHEST WO EXAM: CT CHEST WO CLINICAL HISTORY: Screening for lung cancer,former smoker, z87.891,6 mo f/u ground glass find TECHNIQUE: Imaging Protocol: Axial computed tomography images with coronal and sagittal reformatted images were created and reviewed CONTRAST MATERIAL: Intravenous: Omnipaque 350 Contrast volume:structured data ml. COMPARISON: CT CT CHEST LUNG CANCER SCREEN from 05/26/2023 FINDINGS: Pulmonary parenchyma: No consolidation. No dominant measurable mass. Mild scarring in the right lowe r lobe adjacent to the thoracic spine. Stable 4 millimeter right middle lobe nodule. Stable tiny no dules at the right major fissure. Tracheobronchial tree: No bronchiectasis or mucous plugging. Mediastinum and Elva: No dominant adenopathy or fluid collection. Pleura: No effusion. No pneumothorax. Heart: The heart is not dilated. Minimal coronary artery calcifications are seen. Aorta: Thoracic aorta non-dilated. Mild atherosclerotic changes. Upper abdomen: No acute findings. Status post cholecystectomy. Bones: Degenerative changes in the spine. Soft tissues: Unremarkable. IMPRESSION: Stable tiny pulmonary nodules. No evidence of suspicious mass or infiltrates. If indicated, low-dos e screening chest CT could be performed in 1 year from now. RADIATION DOSE DELIVERED: 792.5mGy.cm Total DLP DATA REPOSITORY: All CT scans at this facility are submitted to the National Radiology Data Registry (NRDR) Dose Index Registry (DIR) with the [employer] ([employer]). RADIATION OPTIMIZATION: All CT scans at this facility use at least one of these dose optimization te chniques: automated exposure control; mA and/or kV adjustment per patient size (includes targeted exa ms where dose is matched to clinical indication); or iterative reconstruction.
== END ==
PROVIDERS: PCP Nurse Practitioner Family; Visit Provider Nurse Practitioner Family
DX: Z87.891 Personal history of nicotine dependence (principal); R91.8 Other nonspecific abnormal finding of lung field
CPT/HCPCS: 71250

== ENCOUNTER 2024-06-13 05:10 | Outpatient (CLI) | payer MEDICARE, OTHER, SELFPAY ==
[2024-06-13 12:38] LABS: Anion Gap 8.9 mmol/L (3-11); BUN 17 mg/dL (7-18); CO2 26.1 mmol/L (21.0-32.0); Calcium 9.1 mg/dL (8.5-10.1); Chloride 109 mmol/L (98-107); Estimated GFR 59.49 (mL/min/1.73m2); Glucose 96 mg/dL (74-106); Potassium 3.9 mmol/L (3.5-5.1); Sodium 144 mmol/L (136-145)
[2024-06-13 12:53] LABS: Calculated LDL 78 mg/dL (<100); Cholesterol 174 mg/dL (<200); HDL Cholesterol 77 mg/dL (40-60); Triglyceride 97 mg/dL (<150)
== END 2024-06-13 05:11 | disposition home or self-care (01) ==
LOC: LOS 05:10
PROVIDERS: PCP Nurse Practitioner Family; Visit Provider Nurse Practitioner Family
DX: I10 Essential (primary) hypertension (principal); Z87.891 Personal history of nicotine dependence; I65.21 Occlusion and stenosis of right carotid artery; M85.80 Other specified disorders of bone density and structure, unspecified site; Z53.20 Procedure and treatment not carried out because of patient's decision for unspecified reasons
CPT/HCPCS: 36415; 80048; 80061

== ENCOUNTER 2025-02-05 01:35 | Outpatient (CLI) | payer MEDICARE, OTHER, SELFPAY ==
--- NOTE | 2025-02-05 06:45 | DI.CTLCSR_ITS ---
Exam(s) CT CHEST LUNG CANCER SCREEN EXAM: CT CHEST LUNG CANCER SCREEN CLINICAL HISTORY: Screening for lung cancer,former cigarette smoker, z87.891. TECHNIQUE: Imaging Protocol: Low Dose Technique CONTRAST MATERIAL: None COMPARISON: CT CT CHEST WO from 12/15/2023 FINDINGS: CHEST: LUNGS: Small previously described right lung nodules remain unchanged. There also a few tiny left marielle ng nodules which also remain unchanged. There are no new significant lung nodules and there are no n ew infiltrates nor pleural effusions.. MEDIASTINUM: There is no obvious hilar nor mediastinal adenopathy. CARDIAC: Heart size is normal. There is no pericardial effusion.Caliber of the thoracic aorta is wit hin normal limits. OTHER: No adrenal masses. OSSEOUS: No significant osseous lesions.No fractures.. IMPRESSION: 1. Stable small benign bilateral lung nodules, unchanged from 12/15/2023. 2. No new nodules, infiltrates, nor pleural effusions. 3. Lung RADS Cat 2 - Benign Appearance / Behavior: Nodules with a very low likelihood of becoming a c linically active cancer due to size or lack of growth Lung-RADS 1.0 CATEGORIES: Category 0 - Prior chest CT exam(s) being located for comparison. Category 1 - Annual screening in 12 months. No nodules or definitely benign nodules. Category 2 - Annual screening in 12 months. Benign appearance. Nodules with low likelihood of becomin g active cancer. Category 3 - 6-month follow-up. Probably benign. Short-term follow-up suggested. Nodules with low lik elihood of becoming active cancer. Category 4A - 3-month follow-up and CT/PET if >8 mm in size. Suspicious finding. Findings which requi re additional testing. Category 4B - Findings which require additional testing and tissue sampling. Category 4X - Category 3 or 4 nodules with additional features or imaging findings that increases the suspicion of malignancy. Modifier S- Potentially clinically significant findings (non lung cancer) RADIATION DOSE DELIVERED: 96.62mGy.cm Total DLP DATA REPOSITORY: All CT scans at this facility are submitted to the National Radiology Data Registry (NRDR) Dose Index Registry (DIR) with the [employer] ([employer]). RADIATION OPTIMIZATION: All CT scans at this facility use at least one of these dose optimization te chniques: automated exposure control; mA and/or kV adjustment per patient size (includes targeted exa ms where dose is matched to clinical indication); or iterative reconstruction.
== END 2025-02-05 01:55 ==
LOC: DI 01:36
PROVIDERS: PCP Nurse Practitioner Family; Visit Provider Nurse Practitioner Family
DX: Z87.891 Personal history of nicotine dependence (principal); Z12.2 Encounter for screening for malignant neoplasm of respiratory organs
CPT/HCPCS: 71271

== ENCOUNTER 2025-06-20 03:38 | Outpatient (CLI) | payer MEDICARE, OTHER, SELFPAY ==
--- NOTE | 2025-06-20 07:30 | DI.DEXA_ITS ---
Exam(s) XR DEXA BONE DENSITY W/WO PAOLO EXAM: XR DEXA BONE DENSITY W/WO PAOLO CLINICAL HISTORY: screening,POSTMENOPAUSAL STATUS,OSTEOPENIA,Z78.0 TECHNIQUE: [employer] C densitometer analysis of left hip, lumbar spine and left forearm. Lateral survey image of the thoracic and lumbar spine. COMPARISON: CR XR DEXA BONE DENSITY W/WO PAOLO from 05/07/2021 FINDINGS: Lateral view of the thoracic and lumbar spine shows no evidence of compression fractures. Bone mineral density measurements of the lumbar spine correspond to a total T- score of 1.5, in the normal range. This represents a 12 percent increase from 2020. The findings could in part be secondary to worsening of degenerative changes. Bone mineral density measurements of the left hip correspond to a total T-score of -0.2, not significantly changed from 2020. . The femoral neck T-score is - 0.3, in the normal range.. Theleft forearm bone mineral density measurements correspond to a T-score of the distal 3rd of -1.1, in the osteopenic range. This represents a 4.2 percent increase compared to 2020.. IMPRESSION: Normal bone density of the lumbar spine and hip. Mild osteopenia of the forearm.
--- NOTE | 2025-06-20 07:30 | DI.MAMMO_ITS ---
Exam(s) MAMMO SCREENING EXAM: MAMMO SCREENING CLINICAL HISTORY: [id number] TECHNIQUE: Bilateral full field digital CC and MLO mammographic images were obtained with 3D tomosynthesis and utilizing computer aided detection (CAD). COMPARISON: Comparison is made with prior examinations. FINDINGS: Masses/Architectural Distortion: No suspicious masses or areas of architectural distortion are present. There is again seen asymmetric breast tissue in the 12 o'clock position of the left breast. Microcalcifications: No suspicious pleomorphic-type are seen. Skin Thickening/Nipple Retraction: None. IMPRESSION: 1. No significant interval change with no specific features of malignancy noted. 2. Unless there is more urgent need, screening mammography is recommended, as per [place] [employer] guidelines. BI-RADS Category 2 - Benign Findings Breast Density - Category B - There are scattered areas of fibroglandular density. Breast density Category C or D implies that the patient has dense breast tissue. Dense breast tissue can make it harder to find cancer on a mammogram. Dense breast tissue is also associated with an increased risk of breast cancer. This information about the result of the mammogram report was provided to the patient to raise their awareness. Use this report when you speak with the patient about their risks for breast cancer, which includes their family history. At that time, you may recommend additional screening tests (Ultrasound or MRI) as these tests may add significant information. A negative radiographic report should not delay biopsy if a dominant or clinically suspicious mass is present. Up to ten percent of cancers are not identified on mammography. A negative report may reinforce clinical impression. Adenosis and dense breasts may obscure an underlying neoplasm. False positive reports average 6 to 10%. Patient will receive a letter notifying them of these results.
== END 2025-06-20 03:58 ==
LOC: DI 03:38
PROVIDERS: PCP Nurse Practitioner Family; Visit Provider Nurse Practitioner Family
DX: Z78.0 Asymptomatic menopausal state (principal); M85.80 Other specified disorders of bone density and structure, unspecified site; Z12.31 Encounter for screening mammogram for malignant neoplasm of breast
CPT/HCPCS: 77063; 77067; 77080

== ENCOUNTER 2025-07-08 03:25 | Outpatient (CLI) | payer MEDICARE, OTHER, SELFPAY ==
[2025-07-08 08:07] LABS: Anion Gap 8.7 mmol/L (3-11); BUN 18 mg/dL (7-18); CO2 28.3 mmol/L (21.0-32.0); Calcium 9.0 mg/dL (8.5-10.1); Chloride 105 mmol/L (98-107); Cholesterol 169 mg/dL (<200); Glucose 101 mg/dL (74-106); HDL Cholesterol 68 mg/dL (>or=50); Potassium 4.4 mmol/L (3.5-5.1); Sodium 142 mmol/L (136-145)
== END 2025-07-08 03:26 | disposition home or self-care (01) ==
LOC: LBO 03:26
PROVIDERS: PCP Nurse Practitioner Family; Visit Provider Nurse Practitioner Family
DX: Z00.00 Encounter for general adult medical examination without abnormal findings (principal); I10 Essential (primary) hypertension; M85.88 Other specified disorders of bone density and structure, other site
CPT/HCPCS: 36415; 80048; 80061